=== PATIENT | female | born 1945 | race Caucasian/White ===

== ENCOUNTER → 2018-03-06 12:53 | Outpatient (CLI) | payer MEDICARE, OTHER, SELFPAY ==
[2018-03-06 14:35] LABS: Absolute Lymphocyte Count 1.92 X10^3/ul (0.83-4.51); Absolute Neutrophil Count 2.3 X10^3/uL (2.0-7.7); Basophil# 0.01 X10^3/uL; Basophil% 0.2 % (0-1); Eosinophil# 0.21 X10^3/uL; Eosinophils% 4.4 % (0-5); Hematocrit 44.9 % (37-47); Hemoglobin 14.5 g/dl (12.0-15.0); Lymphocyte # 1.92 X10^3/ul (4.0); Lymphocyte % 40.1 % (19-41); Mean Corp Hgb Conc 32.3 g/gl (32-36); Mean Corpuscular Hgb 30.9 pg (27.0-32.0); Mean Corpuscular Volume 95.5 fL (81-99); Mean Platelet Vol. 11.1 fl (6.2-12.0); Monocyte# 0.37 X10^3/uL; Monocyte% 7.7 % (0-10); Neutrophil # 2.27 X10^3/uL (2.7-7.7); Neutrophil % 47.4 % (47-70); POSITIVE COUNT NO; POSITIVE DIFFERENTIAL NO; POSITIVE MORPHOLOGY NO; Platelet Count 199 K/mm3 (150-450); RBC Distribution Width CV 12.5 % (11.6-14.6); White Blood Count 4.8 K/mm3 (4.4-11.0)
[2018-03-06 15:21] LABS: Color, Urine Yellow (Yellow); Glucose, Dipstick Normal (Normal); Ketone-Dipstick Negative (Negative); Leukocyte Esterase-Dipstick Negative /ul (Negative); Nitrite-Dipstick Negative (Negative); Occult Blood-Urine Negative /ul (Negative); Protein-Dipstick 15 mg/dl (Negative); Specific Gravity, Urine 1.025 (1.002-1.030); Urine Bilirubin Dipstick Negative (Negative); Urine Clarity Sl. Cloudy (Clear); Urine Urobilinogen Normal (Normal)
[2018-03-06 15:27] LABS: Protein, Urine (Random) 44.6 mg/dL (<11.9); Protein:Creat Ratio 208 mg/g CRE (0-200)
[2018-03-06 15:31] LABS: ALB/GLOB Ratio 1.1 RATIO (0.9-2.4); AST(SGOT) 17 U/L (15-37); Alanine Aminotransfer ALT/SGPT 26 U/L (13-56); Albumin, Serum 3.9 g/dL (3.2-5.0); Alkaline Phosphatase 112 U/L (45-117); Anion Gap 7 (5-15); BUN 26 mg/dL (7-18); BUN/Creat Ratio 29.7 RATIO (10-20); Chloride 108 mmol/L (98-107); Creatinine, Serum 0.88 mg/dL (0.55-1.02); EST Glomerular Filtration Rate 68 mL/min (>60); Est Glom Filt Rate - Afr Amer 82 mL/min (>60); Globulin 3.7 g/dL (2.2-4.2); Glucose 81 mg/dL (74-106); Protein, Total 7.6 g/dL (6.4-8.2); Sodium Level 142 mmol/L (136-145)
== END ==
PROVIDERS: Family Provider Family Medicine; PCP Family Medicine; Visit Provider Internal Medicine Rheumatology
DX: M32.9 Systemic lupus erythematosus, unspecified (principal); M17.0 Bilateral primary osteoarthritis of knee; F32.89 Other specified depressive episodes; I34.1 Nonrheumatic mitral (valve) prolapse; G47.33 Obstructive sleep apnea (adult) (pediatric)
CPT/HCPCS: 36415; 80053; 81002; 82570; 84156; 85025

== ENCOUNTER → 2018-08-31 09:09 | Outpatient (CLI) | payer MEDICARE, OTHER, SELFPAY ==
--- NOTE | 2018-08-31 11:47 | RAD_ITS ---
STUDY: X-RAY - PELVIS REASON FOR EXAM: Female, 72 years old. Systemic lupus erythematosus. TECHNIQUE: One view of the pelvis was obtained. COMPARISON: None. FINDINGS: There is a non-specific bowel gas pattern. Normal visualized soft tissue structures. There are multiple calcified phleboliths. Normal bilateral iliac wings, sacroiliac joints and visualized sacrum. Normal visualized bilateral superior and inferior pubic rami. Normal pubic symphysis. Normal ischial tuberosities. There are osteoarthritic changes of the right femoral head with marginal osteophyte formation. Normal right acetabulum. There is severe articular joint space narrowing of the right hip. There are osteoarthritic changes of the left femoral head with marginal osteophyte formation. Normal left acetabulum. There is severe articular joint space narrowing of the left hip. RAD/Pelvis 1 or 2 Views IMPRESSION: Marked degenerative changes of the bilateral hips. Electronically Signed: Kalyan Worrell DO at 20:36 EDT Tel [phone], Service support ,
[2018-08-31 12:08] LABS: Color, Urine Yellow (Yellow); Glucose, Dipstick Normal (Normal); Ketone-Dipstick Negative (Negative); Leukocyte Esterase-Dipstick Negative /ul (Negative); Nitrite-Dipstick Negative (Negative); Occult Blood-Urine 10 /ul (Negative); Protein-Dipstick Negative (Negative); Specific Gravity, Urine 1.025 (1.002-1.030); Urine Bilirubin Dipstick Negative (Negative); Urine Clarity Clear (Clear); Urine Urobilinogen Normal (Normal)
[2018-08-31 12:15] LABS: Absolute Lymphocyte Count 2.32 X10^3/ul (0.83-4.51); Absolute Neutrophil Count 4.2 X10^3/uL (2.0-7.7); Basophil# 0.02 X10^3/uL; Basophil% 0.3 % (0-1); Eosinophil# 0.26 X10^3/uL; Eosinophils% 3.5 % (0-5); Hematocrit 46.8 % (37-47); Hemoglobin 14.7 g/dl (12.0-15.0); Lymphocyte # 2.32 X10^3/ul (4.0); Lymphocyte % 31.3 % (19-41); Mean Corp Hgb Conc 31.4 g/gl (32-36); Mean Corpuscular Hgb 30.6 pg (27.0-32.0); Mean Corpuscular Volume 97.3 fL (81-99); Mean Platelet Vol. 10.7 fl (6.2-12.0); Monocyte# 0.58 X10^3/uL; Monocyte% 7.8 % (0-10); Neutrophil # 4.24 X10^3/uL (2.7-7.7); Neutrophil % 57.1 % (47-70); Platelet Count 210 K/mm3 (150-450); RBC Distribution Width CV 12.8 % (11.6-14.6); RBC Distribution Width SD 45.5 fl (35.1-43.9); Red Blood Count 4.81 M/mm3 (4.2-5.4); White Blood Count 7.4 K/mm3 (4.4-11.0)
[2018-08-31 12:24] LABS: POSITIVE COUNT NO; POSITIVE DIFFERENTIAL NO; POSITIVE MORPHOLOGY NO
[2018-08-31 12:30] LABS: ALB/GLOB Ratio 1.1 RATIO (0.9-2.4); AST(SGOT) 18 U/L (15-37); Alanine Aminotransfer ALT/SGPT 27 U/L (13-56); Albumin, Serum 4.2 g/dL (3.2-5.0); Alkaline Phosphatase 129 U/L (45-117); Anion Gap 7 (5-15); BUN 28 mg/dL (7-18); Calcium,Total 10.4 mg/dL (8.5-10.1); Chloride 105 mmol/L (98-107); EST Glomerular Filtration Rate 58 mL/min (>60); Est Glom Filt Rate - Afr Amer 70 mL/min (>60); Globulin 3.7 g/dL (2.2-4.2); Glucose 73 mg/dL (74-106); Potassium 4.2 mmol/L (3.5-5.1); Protein, Total 7.9 g/dL (6.4-8.2); Sodium Level 138 mmol/L (136-145)
[2018-08-31 12:39] LABS: Protein, Urine (Random) 23.8 mg/dL (<11.9); Protein:Creat Ratio 194 mg/g CRE (0-200)
== END ==
PROVIDERS: Family Provider Family Medicine; PCP Family Medicine; Referring Provider Internal Medicine Rheumatology; Visit Provider Internal Medicine Rheumatology
DX: M32.9 Systemic lupus erythematosus, unspecified (principal); M17.0 Bilateral primary osteoarthritis of knee; F32.89 Other specified depressive episodes; I34.1 Nonrheumatic mitral (valve) prolapse; G47.33 Obstructive sleep apnea (adult) (pediatric)
CPT/HCPCS: 36415; 72170; 80053; 81002; 82570; 84156; 85025

== ENCOUNTER → 2019-02-26 12:43 | Outpatient (CLI) | payer MEDICARE, OTHER, SELFPAY ==
[2017-07-21 14:11] VITALS: BMI 33.9
[2019-02-26 14:26] LABS: Absolute Lymphocyte Count 2.28 X10^3/ul (0.83-4.51); Absolute Neutrophil Count 3.2 X10^3/uL (2.0-7.7); Basophil# 0.02 X10^3/uL; Basophil% 0.3 % (0-1); Eosinophil# 0.16 X10^3/uL; Eosinophils% 2.6 % (0-5); Hematocrit 46.1 % (37-47); Hemoglobin 14.3 g/dl (12.0-15.0); Lymphocyte # 2.28 X10^3/ul (4.0); Lymphocyte % 37.3 % (19-41); Mean Corpuscular Volume 99.8 fL (81-99); Mean Platelet Vol. 10.5 fl (6.2-12.0); Monocyte% 8.2 % (0-10); Neutrophil # 3.15 X10^3/uL (2.7-7.7); Neutrophil % 51.4 % (47-70); POSITIVE COUNT NO; POSITIVE DIFFERENTIAL NO; POSITIVE MORPHOLOGY NO; Platelet Count 222 K/mm3 (150-450); RBC Distribution Width CV 13.3 % (11.6-14.6); RBC Distribution Width SD 48.3 fl (35.1-43.9); Red Blood Count 4.62 M/mm3 (4.2-5.4); White Blood Count 6.1 K/mm3 (4.4-11.0)
[2019-02-26 14:37] LABS: BUN 33 mg/dL (7-18); BUN/Creat Ratio 31.4 RATIO (10-20); Creatinine, Serum 1.05 mg/dL (0.55-1.02); EST Glomerular Filtration Rate 55 mL/min (>60); Est Glom Filt Rate - Afr Amer 66 mL/min (>60); Glucose 90 mg/dL (74-106); Protein, Total 7.4 g/dL (6.4-8.2)
[2019-02-26 14:38] LABS: ALB/GLOB Ratio 1.2 RATIO (0.9-2.4); AST(SGOT) 17 U/L (15-37); Alanine Aminotransfer ALT/SGPT 25 U/L (13-56); Alkaline Phosphatase 98 U/L (45-117); Anion Gap 5 (5-15); Calcium,Total 10.3 mg/dL (8.5-10.1); Chloride 109 mmol/L (98-107); Globulin 3.4 g/dL (2.2-4.2); Potassium 4.8 mmol/L (3.5-5.1); Sodium Level 142 mmol/L (136-145)
== END ==
PROVIDERS: Referring Provider Internal Medicine Rheumatology; Visit Provider Internal Medicine Rheumatology
DX: M32.9 Systemic lupus erythematosus, unspecified (principal); M25.551 Pain in right hip; M16.0 Bilateral primary osteoarthritis of hip; M17.0 Bilateral primary osteoarthritis of knee; F32.89 Other specified depressive episodes; I34.1 Nonrheumatic mitral (valve) prolapse; G47.33 Obstructive sleep apnea (adult) (pediatric)
CPT/HCPCS: 36415; 80053; 85025

== ENCOUNTER 2019-05-17 08:30 | Outpatient (RCR) | payer MEDICARE, OTHER, SELFPAY ==
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
--- NOTE | 2019-05-17 09:10 | HP.PTDCSUM_ITS ---
HP - PT D/C Summary It has been my pleasure to treat KRISTI CURRY under orders from Carlos Doan MD, for the diagnosis of RIGHT THR for a total of 9 visit(s). Discharge Date: Please see the following information for a summary of their discharge status. - Subjective Subjective: PATIENT REPORTS SHE IS DOING GOOD. STATES SHE IS PUTTING HER CANE ASIDE AND NOT USING IT NEAR MUCH. SHE USES IT AT THE [facility]. SAW SURGEON LAST FRIDAY. STATES THE SURGEON RELEASED HER TO SLEEP IN BED AND TOLD HER THE X-RAYS LOOK GOOD. STATES HE SHOWED HER HOW HER HIPS ARE LEVELING OUT. STATES SHE WANTS TO BE DISCHARGED FROM THERAPY. HAS EVEN GOT BACK TO WORK SOME. 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 PATIENT DENIES LE NUMBNESS AND TINGLING. STATES SHE DISCUSSED SHOE LIFT AGAIN WITH SURGEON AND SHE IS STILL GOING TO CONSIDER GETTING ONE. EXPRESSING FRUSTRATION W ITH TRYING TO CARE FOR ILL . - Pain RIGHT HIP Pain Intensity (Out of 10): 2 - Overall Improvement % Improvement: 85 - Objective Objective/Function: ALL GOALS MET. PATIENT IS WALKING A LOT BETTER, BOTH LEGS ARE STRONGER AND SHE EVEN HAS MORE ROM IN EACH KNEE. SHE CONTINUES TO LIMP ON THE RIGHT LE BUT MORE DUE TO LEG LENGTH DISCREPENCY THAN PAIN OR WEAKNESS. GAIT DEVIATIONS GREATLY REDUCE WITH USE OF CANE. NED LE STRENGTH IS 5/5 WITHIN AVAILABLE ROM EXCEPT HIPS 4/5. THE RIGHT HIP ACTUALLY FEELS A LITTLE STRONGER THAN THE LEFT NOW. RIGHT KNEE ROM = -5 DEG EXT TO 110 DEG FLEX. LEFT KNEE -5 DEG EXT TO 100 DEG FLEX. - Goals Goal 1:: DECREASE C/O RIGHT LE PAIN Goal Progress: Goal Met Goal 2:: INDEP AND SAFE GAIT ON ALL SURFACES WITH LEAST ASSISTIVE DEVICE Goal Progress: Goal Met Goal 3:: IMPROVE FUNCTIONAL ROM OF RIGHT LE Goal Progress: Goal Met Goal 4:: IMPROVE FUNCTIONAL STRENGTH OF RIGHT LE Goal Progress: Goal Met Goal 5:: INDEP HEP FOR CONTINUED IMPROVEMENT ONCE FORMAL PHYSICAL THERAPY CONCLUDES. Goal Progress: Goal Met - Plan Plan: D/C TO INDEP HEP. PATIENT IS DEFINATELY AGREEABLE. - D/C Information If there are questions or concerns regarding this patient's physical therapy, please feel free to call me at [phone]. Thank you for the referral of this patient. Sincerely, Lorena Benz, PT, Cert MDT
== END 2019-05-17 19:00 | disposition home or self-care (01) ==
LOC: PT 08:30
PROVIDERS: Referring Provider Orthopaedic Surgery; Visit Provider Orthopaedic Surgery
DX: Z96.641 Presence of right artificial hip joint (principal)
CPT/HCPCS: 97110; 97162; 97530

== ENCOUNTER → 2019-08-30 | Outpatient (CLI) | payer MEDICARE, OTHER, SELFPAY ==
[2017-07-21 14:11] VITALS: BMI 33.9
[2019-08-30 13:57] LABS: Absolute Lymphocyte Count 1.98 X10^3/uL (0.83-4.51); Absolute Neutrophil Count 3.9 X10^3/uL (2.0-7.7); Basophil# 0.06 X10^3/uL; Basophil% 0.9 % (0-1); Eosinophil# 0.15 X10^3/uL; Eosinophils% 2.3 % (0-5); Hematocrit 47.6 % (37-47); Lymphocyte # 1.98 X10^3/ul (4.0); Lymphocyte % 30.3 % (19-41); Mean Corp Hgb Conc 31.5 g/dL (32-36); Mean Corpuscular Hgb 29.8 pg (27.0-32.0); Mean Corpuscular Volume 94.6 fL (81-99); Mean Platelet Vol. 10.2 fl (6.2-12.0); Monocyte# 0.46 X10^3/uL; NRBC Flagged by Analyzer 0 % (0-5); Neutrophil # 3.86 X10^3/uL (2.7-7.7); Neutrophil % 59.2 % (47-70); Platelet Count 228 K/mm3 (150-450); RBC Distribution Width SD 44.9 fl (35.1-43.9); Red Blood Count 5.03 M/mm3 (4.2-5.4); White Blood Count 6.5 K/mm3 (4.4-11.0)
[2019-08-30 14:15] LABS: ALB/GLOB Ratio 1.1 RATIO (0.9-2.4); AST(SGOT) 15 U/L (15-37); Alanine Aminotransfer ALT/SGPT 21 U/L (13-56); Albumin, Serum 4.1 g/dL (3.2-5.0); Alkaline Phosphatase 127 U/L (45-117); Anion Gap 5 (5-15); BUN 23 mg/dL (7-18); BUN/Creat Ratio 19.7 RATIO (10-20); Calcium,Total 10.6 mg/dL (8.5-10.1); Chloride 104 mmol/L (98-107); Creatinine, Serum 1.17 mg/dL (0.55-1.02); EST Glomerular Filtration Rate 48 mL/min (>60); Est Glom Filt Rate - Afr Amer 59 mL/min (>60); Globulin 3.9 g/dL (2.2-4.2); Glucose 95 mg/dL (74-106); Sodium Level 138 mmol/L (136-145)
== END | disposition home or self-care (01) ==
LOC: MTLAB 12:05
PROVIDERS: Referring Provider Internal Medicine Rheumatology; Visit Provider Internal Medicine Rheumatology
DX: M32.9 Systemic lupus erythematosus, unspecified (principal); M16.0 Bilateral primary osteoarthritis of hip; M17.0 Bilateral primary osteoarthritis of knee; F32.89 Other specified depressive episodes; I34.1 Nonrheumatic mitral (valve) prolapse; G47.33 Obstructive sleep apnea (adult) (pediatric)
CPT/HCPCS: 36415; 80053; 85025

== ENCOUNTER → 2019-08-31 | Outpatient (CLI) | payer MEDICARE, OTHER, SELFPAY ==
[2019-08-31 14:03] LABS: PTHIN 100.5 pg/mL (18.4-80.1)
== END | disposition home or self-care (01) ==
LOC: MTLAB 11:54
PROVIDERS: Referring Provider Internal Medicine Rheumatology; Visit Provider Internal Medicine Rheumatology
DX: M32.9 Systemic lupus erythematosus, unspecified (principal); M16.0 Bilateral primary osteoarthritis of hip; M17.0 Bilateral primary osteoarthritis of knee
CPT/HCPCS: 36415; 83970

== ENCOUNTER → 2019-11-03 11:32 | Outpatient (CLI) | payer MEDICARE, OTHER, SELFPAY ==
[2017-07-21 14:11] VITALS: BMI 33.9
[2019-11-03 14:06] LABS: Absolute Neutrophil Count 2.4 X10^3/uL (2.0-7.7); Basophil# 0.04 X10^3/uL; Basophil% 0.8 % (0-1); Color, Urine Yellow (Yellow); Eosinophil# 0.21 X10^3/uL; Eosinophils% 4.1 % (0-5); Glucose, Dipstick Normal (Normal); Hematocrit 42.3 % (37-47); Hemoglobin 13.4 g/dL (12.0-15.0); Ketone-Dipstick 5 mg/dl (Negative); Leukocyte Esterase-Dipstick 25 /ul (Negative); Lymphocyte % 40.5 % (19-41); Mean Corp Hgb Conc 31.7 g/dL (32-36); Mean Corpuscular Hgb 30.4 pg (27.0-32.0); Mean Corpuscular Volume 95.9 fL (81-99); Mean Platelet Vol. 10.3 fl (6.2-12.0); Monocyte% 7.7 % (0-10); NRBC Flagged by Analyzer 0 % (0-5); Neutrophil # 2.42 X10^3/uL (2.7-7.7); Neutrophil % 46.7 % (47-70); Nitrite-Dipstick Negative (Negative); Occult Blood-Urine Negative /ul (Negative); Platelet Count 203 K/mm3 (150-450); Protein-Dipstick 15 mg/dl (Negative); RBC Distribution Width SD 45.9 fl (35.1-43.9); Red Blood Count 4.41 M/mm3 (4.2-5.4); Urine Clarity Clear (Clear); Urine Urobilinogen Normal (Normal); White Blood Count 5.2 K/mm3 (4.4-11.0)
[2019-11-03 14:20] LABS: Urine Bilirubin Dipstick 1 mg/dL (Negative)
[2019-11-03 14:22] LABS: Protein, Urine (Random) 43.4 mg/dL (<11.9); Protein:Creat Ratio 165 mg/g CRE (0-200)
[2019-11-03 14:30] LABS: AST(SGOT) 17 U/L (15-37); Alanine Aminotransfer ALT/SGPT 21 U/L (13-56); Albumin, Serum 3.7 g/dL (3.2-5.0); Alkaline Phosphatase 104 U/L (45-117); Anion Gap 5 (5-15); BUN 33 mg/dL (7-18); Calcium,Total 9.6 mg/dL (8.5-10.1); Chloride 109 mmol/L (98-107); Creatinine, Serum 1.27 mg/dL (0.55-1.02); EST Glomerular Filtration Rate 44 mL/min (>60); Est Glom Filt Rate - Afr Amer 53 mL/min (>60); Globulin 3.6 g/dL (2.2-4.2); Glucose 72 mg/dL (74-106); Potassium 3.9 mmol/L (3.5-5.1); Protein, Total 7.3 g/dL (6.4-8.2); Sodium Level 142 mmol/L (136-145)
== END ==
PROVIDERS: Referring Provider Internal Medicine Rheumatology; Visit Provider Internal Medicine Rheumatology
DX: M32.9 Systemic lupus erythematosus, unspecified (principal); M16.0 Bilateral primary osteoarthritis of hip; M17.0 Bilateral primary osteoarthritis of knee
CPT/HCPCS: 36415; 80053; 81002; 82570; 84156; 85025

== ENCOUNTER → 2020-05-30 11:03 | Outpatient (CLI) | payer MEDICARE, OTHER, SELFPAY ==
[2017-07-21 14:11] VITALS: BMI 33.9
[2020-05-30 12:05] LABS: Absolute Neutrophil Count 3.4 X10^3/uL (2.0-7.7); Basophil# 0.05 X10^3/uL; Basophil% 0.7 % (0-1); Eosinophils% 4.3 % (0-5); Hematocrit 47.2 % (37-47); Hemoglobin 14.9 g/dL (12.0-15.0); Lymphocyte % 37.4 % (19-41); Mean Corp Hgb Conc 31.6 g/dL (32-36); Mean Corpuscular Hgb 30.8 pg (27.0-32.0); Mean Corpuscular Volume 97.7 fL (81-99); Mean Platelet Vol. 10.8 fl (6.2-12.0); Monocyte# 0.59 X10^3/uL; Monocyte% 8.5 % (0-10); NRBC Flagged by Analyzer 0 % (0-5); Neutrophil # 3.41 X10^3/uL (2.7-7.7); Platelet Count 215 K/mm3 (150-450); RBC Distribution Width CV 13.1 % (11.6-14.6); RBC Distribution Width SD 46.8 fl (35.1-43.9); Red Blood Count 4.83 M/mm3 (4.2-5.4)
[2020-05-30 12:25] LABS: PTHIN 106.6 pg/mL (18.4-80.1)
[2020-05-30 12:43] LABS: ALB/GLOB Ratio 1.1 RATIO (0.9-2.4); AST(SGOT) 17 U/L (15-37); Alanine Aminotransfer ALT/SGPT 21 U/L (13-56); Alkaline Phosphatase 115 U/L (45-117); Anion Gap 6 (5-15); BUN 30 mg/dL (7-18); BUN/Creat Ratio 26.8 RATIO (10-20); Calcium,Total 10.3 mg/dL (8.5-10.1); Chloride 110 mmol/L (98-107); Creatinine, Serum 1.12 mg/dL (0.55-1.02); EST Glomerular Filtration Rate 51 mL/min (>60); Est Glom Filt Rate - Afr Amer 61 mL/min (>60); Globulin 3.7 g/dL (2.2-4.2); Glucose 87 mg/dL (74-106); Potassium 4.1 mmol/L (3.5-5.1); Protein, Total 7.7 g/dL (6.4-8.2); Sodium Level 140 mmol/L (136-145)
== END ==
PROVIDERS: Referring Provider Internal Medicine Rheumatology; Visit Provider Internal Medicine Rheumatology
DX: M32.9 Systemic lupus erythematosus, unspecified (principal); M16.0 Bilateral primary osteoarthritis of hip; M17.0 Bilateral primary osteoarthritis of knee; I34.1 Nonrheumatic mitral (valve) prolapse; G47.33 Obstructive sleep apnea (adult) (pediatric)
CPT/HCPCS: 36415; 80053; 83970; 85025

== ENCOUNTER 2020-06-01 10:00 | Outpatient (RCR) | payer MEDICARE, OTHER, SELFPAY ==
--- NOTE | 2020-05-24 12:45 | HP.PTEVAL_ITS ---
Patient's Visit Information KRISTI CURRY is a 74 year old F referred to Physical Therapy by DAPHNE MALONEY with a diagnosis of L hip OA. Date of Evaluation: 05/24/20 Physical Therapist: Erik Orantes, PT, ATC - Visit Plan Frequency: 1x/Week Duration: 2 Weeks Plan: Issue and instruct pt on HEP consisting of L LE stretching, strengthening, balance/proprio, and core stab ex's. - Subjective Pt reports L hip has been sore for a couple years. Pt reports she had her R hip replaced 1 year ago, and was told back then that she would need her L one replaced soon. Pt reports she is very active, and notes she is really sore the day after she works out in the yard. Pt also notes she feels a little unsteady with gait at this time secondary to her R LE being longer in length than her L LE. Pt reports she likes to ride horses and would like to be able to do that again. Pt denies tinglin or numbness in L LE. Pt reports sleep difficulty at this time secondary to L hip pain. Pt reports she is able to negotiate stairs at this time but must go one stair at a time. 4/10 pain at rest, 9/10 at worst (working in the yard). Pt is scheduled to have L ANASTASIA 06/23/2020 - Pain L hip Pain Intensity (Out of 10): 4 Pain Intensity Range: 9 - Objective Neuro: B LE sensation is WNL to light touch. B patellar reflex= 2/3. MMT: R hip is grossly 5/5 throughout while L hip is 4/5 and painful with testing. ROM: B hip's are WFL at this time. Special tests: Pos quadrant test - Goals Goal 1:: I with HEP 2-3 visits Goal Time Frame: 2 Weeks - Rehabilitation Potential Physical Therapy Diagnosis: Pt has L hip pain and weakness secondary to L hip OA Rehabilitation Potential: Good - Anticipated Interventions Patient/Client Instruction: Educate patient on: Condition, Plan of Care For the Purpose of:: To improve self management Therapeutic Exercise to Include: Strength training, Balance training, Flexibilty training, Active ROM, Dynamic Lumbar Stabilization For the Purpose of:: To decrease pain, To improve muscle performance and motor function, To improve ability of physical actions for home/community/work/leisure Cryotherapy (ice pack, ice massage): Yes For the Purpose of:: To decrease pain Thank you for the opportunity to evaluate your patient. For Medicare and Medicare HMO plans, please review the plan of care and approve it. It will need to be FAXED BACK to us at [phone] for Medicare purposes. For Medicare only, by signing this I certify the plan of care. Please let me know if there are questions or concerns regarding this plan of care. Physician Signature: ___Date:
--- NOTE | 2020-06-01 10:32 | HP.PTDCSUM ---
It has been my pleasure to treat KRISTI CURRY referred by DAPHNE MALONEY, with the diagnosis of L hip OA for a total of 2 visit(s). Discharge Date: Please see the following information for a summary of their discharge status. Subjective: My knee hurts the most today. L hip Pain Intensity (Out of 10): 5 % Improvement: 0 Objective/Function: Pt is now I with HEP Goal 1:: I with HEP 2-3 visits Goal Progress: Goal Met Plan: Issued and instructed pt on HEP consisting of L LE stretching, strengthening, balance/proprio, and core stab ex's. Discharge If there are questions or concerns regarding this patient's physical therapy, please feel free to call me at [phone]. Thank you for the referral of this patient. Sincerely, Erik Orantes, PT, ATC
== END 2020-06-01 13:35 | disposition home or self-care (01) ==
LOC: PT 10:00
DX: M16.12 Unilateral primary osteoarthritis, left hip (principal)
CPT/HCPCS: 97110; 97161

== ENCOUNTER 2020-08-08 10:00 | Outpatient (RCR) | payer MEDICARE, OTHER, SELFPAY ==
--- NOTE | 2020-07-26 09:47 | HP.PTEVAL ---
Patient's Visit Information KRISTI CURRY is a 74 year old F referred to Physical Therapy by Dr. Carlos Doan MD with a diagnosis of L ANASTASIA 06/23/20. Date of Evaluation: 07/26/20 Physical Therapist: Erik Orantes, PT, ATC - Visit Plan Frequency: 2x /Week Duration: 5 weeks Plan: L LE strengthening, balance and proprio, core strengthening, nustep, and HEP - Subjective DOS: 06/23/20. Pt notes she had a L ANASTASIA performed with a posterior approach. Pt notes she is doing well at this time. Pt reports she is still using her WW, but has tried her cane on occasion. Pt reports she had Home health for 3 weeks after her surgery. Pt notes the pain she now has is significantly better than prior to surgery. Pt reports she is able to negotiate stairs one at a time. Pt notes she also does have L knee pain that limits her. No tingling or numbness in L LE. Pt reports sleep difficulty at this time without the use of pain meds. 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 0/10 pain at rest, 7/10 pain with prolonged activity. - Pain L ANASTASIA 06/23/20 Pain Intensity (Out of 10): 0 Pain Intensity Range: 7 - Objective Neuro: B LE sensation is WNL to light touch. MMT: R LE is grossly 5/5 throughout. L LE is grossly 4/5 and painful. ROM: L hip is minimally limited in all planes. R LE is WNL. Gait: Pt is able to ambulate 680 feet with WW and CGA - Goals Goal 1:: Decrease L hip pain x 50% to aid with sleep Goal Time Frame: 4-6 Weeks Goal 2:: Increase L LE strength x 1 grade to aid with stair negotiation Goal Time Frame: 4-6 Weeks Goal 3:: Pt will be able to ambulate greater than 1000 feet with LRD to aid with community ambulation Goal Time Frame: 4-6 Weeks Goal 4:: I with HEP Goal Time Frame: 4-6 Weeks - Rehabilitation Potential Physical Therapy Diagnosis: Pt has L hip pain, weakness, and limited ROM secondary to L ANASTASIA Rehabilitation Potential: Good - Anticipated Interventions Patient/Client Instruction: Educate patient on: Condition, Plan of Care For the Purpose of:: To improve self management Therapeutic Exercise to Include: Strength training, Endurance training, Balance training, Gait and locomotor training, Active ROM, Dynamic Lumbar Stabilization For the Purpose of:: To decrease pain, To increase ROM, To improve muscle performance and motor function Cryotherapy (ice pack, ice massage): Yes For the Purpose of:: To decrease pain Thank you for the opportunity to evaluate your patient. For Medicare and Medicare HMO plans, please review the plan of care and approve it. It will need to be FAXED BACK to us at [phone] for Medicare purposes. For Medicare only, by signing this I certify the plan of care. Please let me know if there are questions or concerns regarding this plan of care. Physician Signature: Date:
--- NOTE | 2020-08-21 15:02 | HP.PT.NRP ---
KRISTI CURRY was seen in my office for initial evaluation on 07/26/20. The following Plan of Care was established for this patient: Initial Frequency: 2x /Week Initial Duration: 5 weeks Patient/Client Instruction: Educate patient on: Condition, Plan of Care For the Purpose of:: To improve self management Therapeutic Exercise to Include: Strength training, Endurance training, Balance training, Gait and locomotor training, Active ROM, Dynamic Lumbar Stabilization For the Purpose of:: To decrease pain, To increase ROM, To improve muscle performance and motor function Cryotherapy (ice pack, ice massage): Yes For the Purpose of:: To decrease pain This patient was last seen in our office . Pertinent comments regarding their Physical therapy will appear below: Pt reports her knee pain is too sore to continue with her PT at this time. Pt is discontinued. At this point I will be discontinuing this patient from physical therapy. I would be happy to see this patient again in the future if found appropriate by the physician. Thank you! Erik Orantes, PT, ATC
== END 2020-08-08 19:00 | disposition home or self-care (01) ==
LOC: PT 10:00
PROVIDERS: Referring Provider Orthopaedic Surgery; Visit Provider Orthopaedic Surgery
DX: Z47.1 Aftercare following joint replacement surgery (principal)
CPT/HCPCS: 97110; 97161

== ENCOUNTER → 2020-09-12 11:35 | Outpatient (CLI) | payer MEDICARE, OTHER, SELFPAY ==
[2020-09-12 11:04] VITALS: BMI 40.1
[2020-09-12 13:34] LABS: Calcium,Total 10.7 mg/dL (8.5-10.1)
[2020-09-12 13:41] LABS: PTHIN 105.9 pg/mL (18.4-80.1)
== END ==
PROVIDERS: Referring Provider Internal Medicine Endocrinology, Diabetes & Metabolism; Visit Provider Internal Medicine Endocrinology, Diabetes & Metabolism
DX: E21.3 Hyperparathyroidism, unspecified (principal); E55.9 Vitamin D deficiency, unspecified
CPT/HCPCS: 36415; 82306; 82310; 83970

== ENCOUNTER → 2020-09-19 12:38 | Outpatient (CLI) | payer MEDICARE, OTHER, SELFPAY ==
[2020-09-12 11:04] VITALS: BMI 40.1
[2020-09-19 15:08] LABS: Absolute Lymphocyte Count 1.71 X10^3/uL (0.83-4.51); Absolute Neutrophil Count 4.2 X10^3/uL (2.0-7.7); Basophil# 0.03 X10^3/uL; Basophil% 0.5 % (0-1); Eosinophil# 0.18 X10^3/uL; Eosinophils% 2.7 % (0-5); Hematocrit 45.8 % (37-47); Hemoglobin 14.2 g/dL (12.0-15.0); Lymphocyte # 1.71 X10^3/ul (4.0); Lymphocyte % 26.1 % (19-41); Mean Corpuscular Hgb 29.7 pg (27.0-32.0); Mean Corpuscular Volume 95.8 fL (81-99); Mean Platelet Vol. 10.6 fl (6.2-12.0); Monocyte# 0.47 X10^3/uL; Monocyte% 7.2 % (0-10); NRBC Flagged by Analyzer 0 % (0-5); Neutrophil # 4.16 X10^3/uL (2.7-7.7); Neutrophil % 63.3 % (47-70); Platelet Count 227 K/mm3 (150-450); RBC Distribution Width CV 12.8 % (11.6-14.6); RBC Distribution Width SD 45.4 fl (35.1-43.9); Red Blood Count 4.78 M/mm3 (4.2-5.4); White Blood Count 6.6 K/mm3 (4.4-11.0)
[2020-09-19 15:24] LABS: ALB/GLOB Ratio 1.1 RATIO (0.9-2.4); AST(SGOT) 16 U/L (15-37); Alanine Aminotransfer ALT/SGPT 21 U/L (13-56); Alkaline Phosphatase 130 U/L (45-117); Anion Gap 6 (5-15); BUN 28 mg/dL (7-18); Chloride 108 mmol/L (98-107); EST Glomerular Filtration Rate 58 mL/min (>60); Est Glom Filt Rate - Afr Amer 70 mL/min (>60); Globulin 3.7 g/dL (2.2-4.2); Glucose 77 mg/dL (74-106); Protein, Total 7.7 g/dL (6.4-8.2); Sodium Level 140 mmol/L (136-145)
== END ==
PROVIDERS: Referring Provider Internal Medicine Rheumatology; Visit Provider Internal Medicine Rheumatology
DX: M32.9 Systemic lupus erythematosus, unspecified (principal); M16.0 Bilateral primary osteoarthritis of hip; M17.0 Bilateral primary osteoarthritis of knee; I34.1 Nonrheumatic mitral (valve) prolapse; G47.33 Obstructive sleep apnea (adult) (pediatric)
CPT/HCPCS: 36415; 80053; 85025

== ENCOUNTER → 2021-01-02 12:55 | Outpatient (CLI) | payer MEDICARE, OTHER, SELFPAY ==
[2020-09-12 11:04] VITALS: BMI 40.1
[2021-01-02 15:36] LABS: Vitamin D,25 Hydroxy 31.7 ng/mL
[2021-01-02 15:39] LABS: PTHIN 85.6 pg/mL (18.4-80.1)
[2021-01-02 15:46] LABS: Calcium,Total 10.9 mg/dL (8.5-10.1)
== END ==
PROVIDERS: Referring Provider Internal Medicine Endocrinology, Diabetes & Metabolism; Visit Provider Internal Medicine Endocrinology, Diabetes & Metabolism
DX: E21.0 Primary hyperparathyroidism (principal); E55.9 Vitamin D deficiency, unspecified
CPT/HCPCS: 36415; 82306; 82310; 83970

== ENCOUNTER → 2021-01-08 08:09 | Outpatient (CLI) | payer MEDICARE, OTHER, SELFPAY ==
[2020-09-12 11:04] VITALS: BMI 40.1
[2021-01-08 12:26] LABS: Absolute Lymphocyte Count 2.28 X10^3/uL (0.83-4.51); Absolute Neutrophil Count 3.9 X10^3/uL (2.0-7.7); Basophil# 0.05 X10^3/uL; Basophil% 0.7 % (0-1); Eosinophil# 0.27 X10^3/uL; Eosinophils% 3.8 % (0-5); Hemoglobin 14.4 g/dL (12.0-15.0); Lymphocyte # 2.28 X10^3/ul (4.0); Lymphocyte % 32.5 % (19-41); Mean Corp Hgb Conc 30.6 g/dL (32-36); Mean Corpuscular Hgb 29.8 pg (27.0-32.0); Mean Corpuscular Volume 97.1 fL (81-99); Mean Platelet Vol. 10.9 fl (6.2-12.0); Monocyte# 0.47 X10^3/uL; Monocyte% 6.7 % (0-10); NRBC Flagged by Analyzer 0 % (0-5); Neutrophil # 3.93 X10^3/uL (2.7-7.7); Platelet Count 240 K/mm3 (150-450); RBC Distribution Width SD 46.3 fl (35.1-43.9); Red Blood Count 4.84 M/mm3 (4.2-5.4)
[2021-01-08 12:27] LABS: Color, Urine Yellow (Yellow); Glucose, Dipstick Normal (Normal); Ketone-Dipstick Negative (Negative); Leukocyte Esterase-Dipstick 100 /ul (Negative); Nitrite-Dipstick Negative (Negative); Occult Blood-Urine Negative /ul (Negative); Protein-Dipstick Negative (Negative); Specific Gravity, Urine 1.015 (1.002-1.030); Urine Bilirubin Dipstick Negative (Negative); Urine Clarity Sl. Cloudy (Clear); Urine Urobilinogen Normal (Normal)
[2021-01-08 12:47] LABS: Protein, Urine (Random) 6.2 mg/dL (<11.9); Protein:Creat Ratio 190 mg/g CRE (0-200)
[2021-01-08 12:50] LABS: ALB/GLOB Ratio 1.1 RATIO (0.9-2.4); AST(SGOT) 23 U/L (15-37); Alanine Aminotransfer ALT/SGPT 24 U/L (13-56); Albumin, Serum 4.2 g/dL (3.2-5.0); Alkaline Phosphatase 129 U/L (45-117); Anion Gap 6 (5-15); BUN 24 mg/dL (7-18); BUN/Creat Ratio 26.9 RATIO (10-20); Calcium,Total 10.4 mg/dL (8.5-10.1); Chloride 108 mmol/L (98-107); Creatinine, Serum 0.89 mg/dL (0.55-1.02); EST Glomerular Filtration Rate 66 mL/min (>60); Est Glom Filt Rate - Afr Amer 80 mL/min (>60); Globulin 3.7 g/dL (2.2-4.2); Glucose 83 mg/dL (74-106); Protein, Total 7.9 g/dL (6.4-8.2); Sodium Level 139 mmol/L (136-145)
== END ==
PROVIDERS: Visit Provider Internal Medicine Rheumatology
DX: M32.9 Systemic lupus erythematosus, unspecified (principal); M16.0 Bilateral primary osteoarthritis of hip; M17.0 Bilateral primary osteoarthritis of knee; I34.1 Nonrheumatic mitral (valve) prolapse; G47.33 Obstructive sleep apnea (adult) (pediatric)
CPT/HCPCS: 36415; 80053; 81002; 82570; 84156; 85025

== ENCOUNTER → 2021-07-06 12:12 | Outpatient (CLI) | payer MEDICARE, OTHER, SELFPAY ==
[2020-09-12 11:04] VITALS: BMI 40.1
[2021-07-06 15:37] LABS: ALB/GLOB Ratio 1.2 RATIO (0.9-2.4); AST(SGOT) 23 U/L (15-37); Absolute Neutrophil Count 3.6 X10^3/uL (2.0-7.7); Alanine Aminotransfer ALT/SGPT 28 U/L (13-56); Albumin, Serum 4.2 g/dL (3.2-5.0); Alkaline Phosphatase 105 U/L (45-117); Anion Gap 6 (5-15); BUN 28 mg/dL (7-18); BUN/Creat Ratio 22.8 RATIO (10-20); Basophil# 0.04 X10^3/uL; Basophil% 0.6 % (0-1); Chloride 111 mmol/L (98-107); Creatinine, Serum 1.23 mg/dL (0.55-1.02); EST Glomerular Filtration Rate 45 mL/min (>60); Eosinophil# 0.14 X10^3/uL; Eosinophils% 2.2 % (0-5); Est Glom Filt Rate - Afr Amer 55 mL/min (>60); Globulin 3.4 g/dL (2.2-4.2); Glucose 107 mg/dL (74-106); Hematocrit 45.4 % (37-47); Hemoglobin 14.3 g/dL (12.0-15.0); Mean Corp Hgb Conc 31.5 g/dL (32-36); Mean Corpuscular Hgb 30.4 pg (27.0-32.0); Mean Corpuscular Volume 96.6 fL (81-99); Mean Platelet Vol. 11.1 fl (6.2-12.0); Monocyte# 0.46 X10^3/uL; Monocyte% 7.4 % (0-10); NRBC Flagged by Analyzer 0 % (0-5); Neutrophil # 3.59 X10^3/uL (2.7-7.7); Neutrophil % 57.5 % (47-70); Platelet Count 209 K/mm3 (150-450); Potassium 4.3 mmol/L (3.5-5.1); Protein, Total 7.6 g/dL (6.4-8.2); RBC Distribution Width CV 12.9 % (11.6-14.6); RBC Distribution Width SD 46.1 fl (35.1-43.9); Sodium Level 142 mmol/L (136-145); White Blood Count 6.3 K/mm3 (4.4-11.0)
[2021-07-06 16:12] LABS: Calcium,Total 10.4 mg/dL (8.5-10.1)
[2021-07-06 16:35] LABS: Vitamin D,25 Hydroxy 44.3 ng/mL
[2021-07-07 08:09] LABS: PTHIN 102.9 pg/mL (18.4-80.1)
== END ==
PROVIDERS: Internal Medicine Endocrinology, Diabetes & Metabolism; Referring Provider Internal Medicine Rheumatology; Visit Provider Internal Medicine Rheumatology
DX: M32.9 Systemic lupus erythematosus, unspecified (principal); M16.0 Bilateral primary osteoarthritis of hip; M17.0 Bilateral primary osteoarthritis of knee; I34.1 Nonrheumatic mitral (valve) prolapse; G47.33 Obstructive sleep apnea (adult) (pediatric); E55.9 Vitamin D deficiency, unspecified; E21.3 Hyperparathyroidism, unspecified
CPT/HCPCS: 36415; 80053; 82306; 82310; 83970; 85025

== ENCOUNTER → 2021-08-15 11:08 | Outpatient (CLI) | payer MEDICARE, OTHER, SELFPAY ==
[2021-08-15 15:18] LABS: ALB/GLOB Ratio 0.9 RATIO (0.9-2.4); AST(SGOT) 20 U/L (15-37); Alanine Aminotransfer ALT/SGPT 27 U/L (13-56); Albumin, Serum 3.7 g/dL (3.2-5.0); Alkaline Phosphatase 112 U/L (45-117); Anion Gap 5 (5-15); BUN 35 mg/dL (7-18); BUN/Creat Ratio 26.3 RATIO (10-20); Chloride 108 mmol/L (98-107); Creatinine, Serum 1.33 mg/dL (0.55-1.02); EST Glomerular Filtration Rate 42 mL/min (>60); Est Glom Filt Rate - Afr Amer 50 mL/min (>60); Globulin 3.9 g/dL (2.2-4.2); Glucose 94 mg/dL (74-106); Potassium 4.4 mmol/L (3.5-5.1); Protein, Total 7.6 g/dL (6.4-8.2); Sodium Level 139 mmol/L (136-145)
== END ==
PROVIDERS: Referring Provider Internal Medicine Endocrinology, Diabetes & Metabolism; Visit Provider Internal Medicine Endocrinology, Diabetes & Metabolism
DX: E21.3 Hyperparathyroidism, unspecified (principal)
CPT/HCPCS: 36415; 80053

== ENCOUNTER → 2021-09-04 07:47 | Outpatient (CLI) | payer MEDICARE, OTHER, SELFPAY ==
--- NOTE | 2021-09-04 07:49 | US_ITS ---
INDICATION: hyperparathyroidism EXAMINATION: Ultrasound US Thyroid (eg thyroid, parathyroid, parotid) TECHNIQUE: Shay scale and color doppler imaging was performed of the thyroid gland. COMPARISON: CT spine obtained 07/21/2017. FINDINGS: RIGHT THYROID LOBE: The right lobe of the thyroid gland measures 4.1 x 1.5 x 1.4 cm. Homogeneous echotexture with normal vascularity. [No thyroid nodules are present. LEFT THYROID LOBE: The left lobe of the thyroid gland measures 4.0 x 1.5 x 1.2 cm. Homogeneous echotexture with normal vascularity. [No thyroid nodules are present. ISTHMUS: The isthmus measures 0.4 cm in maximal AP diameter.. No thyroid nodules are present. US/Thyroid IMPRESSION: Unremarkable thyroid ultrasound examination. Electronically Signed: Michele Lala MD at 13:10 EDT Tel , Service support ,
== END ==
PROVIDERS: PCP Family Medicine; Referring Provider Surgery; Visit Provider Surgery
DX: E21.3 Hyperparathyroidism, unspecified (principal)
CPT/HCPCS: 76536

== ENCOUNTER → 2021-09-11 07:37 | Outpatient (CLI) | payer MEDICARE, OTHER, SELFPAY ==
--- NOTE | 2021-09-11 07:40 | NM_ITS ---
CLINICAL: 75-year-old female with history of clinical hyperparathyroidism. 99m Tc SESTAMIBI DUAL PHASE PLANAR and SPECT PARATHYROID SCINTIGRAPHY COMPARISON: Thyroid ultrasound report 09/04/2021 FINDINGS: Following the intravenous administration of approximately 15.0 mCi of 99m Tc sestamibi, planar image acquisitions of the anterior neck at 15 minutes and 3 hours post radiopharmaceutical provision and SPECT reconstructions obtained at 3 hours following tracer injection reveal: 1. Immediate static blood pool acquisitions demonstrate relatively homogeneous tracer concentration by the left-right lobes of a vaguely U-shaped thyroid gland. 2. Delayed planar images depict incomplete washout of the radiotracer in the distribution of the right and left thyroid beds. Emission computed tomographic reconstructions of the anterior neck reveal confirmation of the planar projection findings. NM/Parathyroid Image w/ SPECT IMPRESSION: 1. There is no definitive scintigraphic evidence of parathyroid adenoma on the current examination. 2. Incomplete-delayed washout of the radiopharmaceutical from the entire functioning thyroid colloid may be secondary to multinodular goiter, chronic lymphocytic thyroiditis. (Hu, Radiographics 19: 601, 1999). Electronically Signed: Jean Pierre Aguilar DO at 22:00 EDT Tel , Service support ,
== END ==
PROVIDERS: PCP Family Medicine; Referring Provider Surgery; Visit Provider Surgery
DX: E21.3 Hyperparathyroidism, unspecified (principal)
CPT/HCPCS: 78071; A9500

== ENCOUNTER 2021-09-24 05:49 | Day surgery (SDC) | payer MEDICARE, OTHER, SELFPAY ==
--- NOTE | 2021-09-21 10:44 | EKG12_ITS ---
Test Reason : PRE OP Blood Pressure : / mmHG Vent. Rate : 071 BPM Atrial Rate : 071 BPM P-R Int : 184 ms QRS Dur : 098 ms QT Int : 390 ms P-R-T Axes : 034 -41 026 degrees QTc Int : 423 ms Normal sinus rhythm with sinus arrhythmia Left axis deviation Abnormal ECG Confirmed by LUCERO REYEZ, DILAN ([id number]), field map editor MARIA LUZ DESAI ([id number]) on 09/25/2021 10:48:37 AM Referred By: Johnny Busch Confirmed By:DILAN BARKER MD
[2021-09-21 12:16] LABS: Hemoglobin 14.5 g/dL (12.0-15.0); Mean Corp Hgb Conc 32.2 g/dL (32-36); Mean Corpuscular Hgb 30.9 pg (27.0-32.0); Mean Corpuscular Volume 95.9 fL (81-99); Platelet Count 206 K/mm3 (150-450); RBC Distribution Width CV 13.1 % (11.6-14.6); RBC Distribution Width SD 46.6 fl (35.1-43.9); Red Blood Count 4.69 M/mm3 (4.2-5.4); White Blood Count 5.5 K/mm3 (4.4-11.0)
[2021-09-21 12:24] LABS: International Normalized Ratio 1.1; Prothrombin Time (Protime)PT. 13.3 SECONDS (11.7-14.9)
[2021-09-21 12:25] LABS: Partial Thromboplast Time 24.4 Seconds (24.1-36.2)
[2021-09-21 12:59] LABS: Anion Gap 5 (5-15); BUN 30 mg/dL (7-18); BUN/Creat Ratio 32.3 RATIO (10-20); Chloride 108 mmol/L (98-107); Creatinine, Serum 0.93 mg/dL (0.55-1.02); EST Glomerular Filtration Rate 63 mL/min (>60); Est Glom Filt Rate - Afr Amer 76 mL/min (>60); Glucose 85 mg/dL (74-106); Potassium 4.2 mmol/L (3.5-5.1); Sodium Level 141 mmol/L (136-145)
[2021-09-24] VITALS (8 sets, daily range): BP systolic 120–155; BP diastolic 31–100; PULSE 40–81; RESP 16–20; TEMP 35.9–37; O2SAT 94–100; BMI 38.2
--- NOTE | 2021-09-24 | PARA_PTH ---
PATIENT: KRISTI CURRY LOC: [facility]#:[id number] AGE/SX: 76/F ROOM: RE09/24/[address]: Dr. Johnny Busch MD : 1945 BED: DIS: 09/24/2021 SPEC #: [id number] RECD: 09/24/21 09:03 STATUS: OSCAR MICKY #: [id number] FEI: 09/24/21 00:[address]: Johnny Busch DEPT: SURGICAL PATHOLOGY RECD BY: Nicole Hernadez ENTERED: 09/24/21 10:10 SP TYPE: PARATHY DANNA DR: Dr. Carey Souza DO Tissues: A - Parathyroid B - Parathyroid C - Parathyroid D - Parathyroid Procedures: Frozen Section (charge) Surgery Specimen Level IV HEADER OPERATION: Parathyroidectomy with PTH and nerve monitoring PRE-OP DIAGNOSIS: Hyperparathyroidism TISSUE SUBMITTED: A - Right inferior parathyroid gland, FS, B - Left inferior parathyroid tissue, FS, C - Left superior parathyroid tissue, FS, D - Left superior parathyroid gland, FS FROZEN SECTION DIAGNOSIS A. Right inferior parathyroid gland: Parathyroid tissue. A small piece of thyroid is also noted. :jeffrey 09/24/2021 B. Left inferior parathyroid gland, biopsy: Fragment of parathyroid tissue. C. Left superior parathyroid gland, biopsy: Fragment of parathyroid tissue. D. Left superior parathyroid gland, biopsy: Hyperplastic parathyroid gland. AM:jeffrey 09/24/2021 MICROSCOPIC DIAGNOSIS A. Right inferior parathyroid gland, biopsy: Parathyroid tissue. Thyroid tissue. B. Left inferior parathyroid gland, biopsy: Parathyroid tissue. C. Left superior parathyroid gland, biopsy: Parathyroid tissue. D. Left superior parathyroid gland, biopsy: Hyperplastic parathyroid tissue (0.5 gm). ANN MARIE:jeffrey 09/25/2021 MICROSCOPIC DESCRIPTION Slides are reviewed. GROSS DESCRIPTION A - Received fresh for frozen section diagnosis labeled with the patient's name is a specimen designated right inferior parathyroid gland. The specimen consists of a piece of amador-pink glandular tissue weighing 0.2 gm and measuring 1 x 1 x 0.2 cm. The entire specimen is submitted in one cassette for frozen section diagnosis. / SJ: 09/24/2021 B - Received fresh for frozen section consultation labeled with the patient's name is a specimen designated left inferior parathyroid tissue. The specimen consists of a single irregular fragment of pink-amador soft tissue measuring 0.5 x 0.2 x 0.1 cm. The specimen is submitted in its entirety in one block for frozen section consultation. / AM: 09/24/2021 C - Received fresh for frozen section consultation labeled with the patient's name is a specimen designated left superior parathyroid tissue. The specimen consists of a single irregular fragment of pink-amador soft tissue measuring 0.3 x 0.2 x 0.1 cm. The specimen is submitted in its entirety in one block for frozen section consultation. / AM: 09/24/2021 D - Received fresh for frozen section consultation labeled with the patient's name is a specimen designated left superior parathyroid gland. The specimen consists of a single irregular fragment of pink-amador soft tissue measuring 1.6 x 1 x 0.3 cm and weights 0.5 gm. The specimen is submitted in its entirety in one block for frozen section consultation. / AM: 09/24/2021 TC:5 CPT: 31567 x4, 07292 x4
[2021-09-24] MEDS: Lactated Ringers 1,000 ML 100 ML IV (06:42)
--- NOTE | 2021-09-24 07:18 | HP.PCM_ITS ---
History and Physical Date of Admission: 09/24/21 [id number]:[id number]: KRISTI CURRY [facility] #:[id number]:1945 Provider:Dr. Johnny Busch MDAge/Sex: 75/F Location:[facility] [place].AStatus:Signed Intake Intake Visit Reasons: IMAGING 09/04 [facility] F/U Chief Complaint: Hyperparathyroidism Allergies Penicillins Allergy (Intermediate, Verified 09/14/21 08:18) rash Sulfa (Sulfonamide Antibiotics) Adverse Reaction (Verified 09/14/21 08:18) Other Medications hydroxychloroquine 200 mg tablet 200 mg PO BID 09/12/20 [History Confirmed 09/14/21] mirabegron 25 mg tablet,extended release 24 hr 25 mg PO DAILY tab 07/10/21 [History Confirmed 09/14/21] tizanidine 2 mg capsule 2 mg PO QHS cap 07/10/21 [History Confirmed 09/14/21] PFSH Medical History Arthritis Atrial fibrillation Breast lump Hypercalcemia Hyperparathyroidism Lupus Osteopenia Vitamin D deficiency Surgical History Hx of bilateral hip replacements Hx of total knee replacement Family History Other Arthritis Cancer Myocardial infarction Social History Smoking Status: Never smoker alcohol intake: never substance use type: does not use HPI HPI HPI: KRISTI CURRY, is a 75 F who presents to the office today for hyperparathyroidism. They are referred from Dr. Harrison Blanchard. Patient has history of osteopenia with a T score of -1.9 on DEXA from 05/03/2014 (this was performed as part of routine woman's health screening). Patient has no history of pathologic fractures. Patient has no history of kidney stones but she does have renal disease with a diagnosis of CKD 3. Patient has no history of frequent dental caries or chipped teeth. Patient has no history of brittle fingernails. Patient has no history of GERD. Patient has no history of hypertension. Additional symptoms include: Fatigue and recent constipation. She specifically denies concentration difficulties or depressed mood. Patient has no history of prior radiation exposure. Patient has no family h istory of other endocrinopathies Patient's current labs are calcium: 10 mg/dL on 08/15/2021 range of 9.6-10.9, Vitamin D: 44.3 ng/mL on 07/06/2021, Ionized calcium: None collected mg/dL, PTH: 102.9 pg/mL on 07/06/2021 range of 85.6-106.6, Phosphorus: None collected per chart Current medications include: Calcium supplementation per patient, but actual prescription not recorded in [employer] Patient has had DEXA imaging 05/30/2014 which showed osteopenia and a T score of -1.9. Patient has not had renal imaging. Patient presents today following her initial consultation on 08/27/2021 (recapitulated in the text above). In the interim she has undergone formal thyroid related ultrasound and nuclear medicine scanning. There were no findings within the thyroid on the ultrasound imaging and no clear tracer uptake to suggest parathyroid adenoma on the nuclear medicine scan. Otherwise, Mrs. Curry reports no new changes to her health and states she is eager to be underway with surgery. Exam Const General: cooperative, healthy appearing, comfortable and no acute distress Orientation: alert, awake and oriented x3 Neck Other: Patient's neck is examined with ultrasound. There is evidence of a high riding innominate vessel on the right but juxtaposed between this and the patient's common carotid artery is a hypoechoic oval that measures 1.2 x 0.8 cm in the mid polar region of the thyroid just deep to that area. Assessment and Plan Assessment and Plan (1) Hyperparathyroidism: Status: Chronic Comment: A 75-year-old female with a longstanding history of hypercalcemia diagnosed with primary hyperparathyroidism after correction of vitamin D deficiency. She has clear evidence of bone mineral disease with osteopenia diagnosed in 2013 on routine DEXA scan. She has no history of nephrolithiasis but does have chronic renal disease. Additional potential symptoms include recent fatigue and constipation. After thyroid ultrasound and SPECT nuc med studies, there is no clear evidence of a parathyroid adenoma. However, my personal repeat ultrasound does show suspicion of a parathyroid adenoma in the right mid polar region. With this work-up, I would like to proceed for parathyroidectomy versus subtotal parathyroidectomy with possible bilateral exploration. Plan to start on the right side of the neck and remove any suspicious glands on this side with intraoperative PTH monitoring. I would plan for an outpatient procedure. This plan was communicated to patient and she is agreeable. She is also informed of postoperative expectations. Plan - Dr. Johnny Busch MD: Minimal invasive parathyroidectomy versus subtotal parathyroidectomy with intraoperative PTH and nerve monitoring. Patient to obtain preoperative PTH level on the day of surgery. In the interim, I will review imaging with radiology. I have re-examined the patient. There are no clinical changes since date of exam. Reviewed the details of the procedure and postoperative expectations with both patient and her daughter is now at bedside. Plan to proceed as described above.
[2021-09-24 07:30] LABS: PTHIN 81.1 pg/mL (18.4-80.1)
[2021-09-24] MEDS: Bupivacaine 0.25% 30 ML Vial (08:13)
[2021-09-24 09:36] LABS: PTHIN 104.9 pg/mL (18.4-80.1)
[2021-09-24 09:40] LABS: PTHIN 105.9 pg/mL (18.4-80.1)
[2021-09-24 11:38] LABS: PTHIN 103.5 pg/mL (18.4-80.1)
[2021-09-24 11:42] LABS: PTHIN 34.7 pg/mL (18.4-80.1)
--- NOTE | 2021-09-24 12:09 | PCM.OPRPT ---
Problems Associated Problem List Diagnoses (1) Hyperparathyroidism: Report of Operation Date of Procedure: 09/24/21 Pre-Operative Diagnosis: Primary hyperparathyroidism Post-Operative Diagnosis: Same Surgery/Procedure Performed:: Parathyroidectomy (2) with bilateral 4 gland exploration, intraoperative PTH and nerve monitoring Description of Surgical Findings:: ?Hyperplastic right inferior parathyroid gland ?grossly?normal right superior parathyroid gland ?grossly?normal left inferior parathyroid gland thymic ligament (biopsy confirmed parathyroid) ?hyperplastic left superior parathyroid gland coursing beneath recurrent laryngeal nerve (500 mg by frozen section) Surgeon: Johnny Busch medical billing manager: Tati Alexandra Type of Anesthesia: General/Supplemental Anesthesiologist: Varun Garcia Specimen's removed: Right inferior parathyroid gland, left superior parathyroid gland, biopsy of left inferior parathyroid gland Drains: NA Estimated Blood Loss (mL): 20 Description of Procedure: After appropriate identification in the preoperative holding area the patient was brought to the operating room where she was positioned supine on the operating room table. There she underwent induction of general endotracheal anesthetic. A NIMs vocalis muscle/nerve monitor tube was placed under glidescope visualization to ensure coaptation of the cords to the tube electrodes. Patient was then positioned with both arms tucked and head extension on a gel roll taking care to pad any pressure points. The grounding and stim wires were placed in the presternal soft tissue according to NIM set up and were connected to the movement assembly final inspector. The electrodes from the tube were also connected to the movement assembly final inspector. The monitor showed satisfactory levels of impedance. The lower chin, neck and upper chest were prepped and draped in usual sterile fashion. The nearest natural skin crease to the patient's cricoid cartilage was selected incision and marked out with marking pen 4 cm wide. 10 mL of half percent bupivacaine was infiltrated locally to provide a local block. This incision was made sharply and extended down through the platysma. The strap muscles were opened longitudinally taking us down to the level of the thyroid gland. Sternothyroid muscle was partially divided at the superior pole of the thyroid gland on both sides to facilitate better exposure. Then the overlying strap muscles were taken off of the thyroid capsule on the right with electrocautery. The middle thyroid vein was taken with the LigaSure and the thyroid was retracted medially. This exposed a enlarged right inferior parathyroid gland. This gland was carefully dissected from the surrounding thyroid parenchyma and its vascular pedicle was divided. It was passed off the field for frozen section and pathologic processing. I then examined the superior portion of the thyroid gland grossly and identified the superior parathyroid gland which appeared to be normal in color and size. At 10 and 15 minutes post?gland excision, I then obtained right internal jugular blood samples using a 22-gauge needle and applying pressure thereafter to maintain hemostasis. Unfortunately, the PTH values for these blood draws were 104.9 and 105.9, respectively. With these results, I determined that patient likely had a gland on the contralateral side driving this abnormal level. Prior to moving to the other side, I did obtain a vagal nerve signal with our nerve monitor. Then, the left thyroid lobe was exposed in the same manner as the right had been by bluntly the overlying sternothyroid muscle from the thyroid gland and selectively using LigaSure for denser attachments. The middle thyroid vein was divided with LigaSure. With the thyroid lobe reflected medially, I examined the posterior aspect of the left thyroid lobe. There seemed to be a small parathyroid gland that was adenomatous in color in the mid polar region but nothing else was immediately obvious. 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 Therefore this dissection was abandoned and I moved inferiorly to the thyroid thymic ligament. Here, I found a normal?appearing parathyroid gland. A biopsy of the gland was sent to confirm its identity and a clip was placed adjacent to the parathyroid remnant. As I moved back cephalad to the adenomatous?appearing parathyroid I found the recurrent laryngeal nerve and coursing beneath the nerve was additional parathyroid gland indicating a deep tracheoesophageal adenoma. Great care was used to bluntly dissect the gland from the underside of the recurrent laryngeal nerve and delivered into the surgical field. The gland was then dissected back to its vascular pedicle and completely removed. Post excision recurrent laryngeal nerve function was confirmed. Left internal jugular blood draws were obtained at 10 and 15 minutes post?excision. Since this clearly represented a adenomatous parathyroid gland, and the remaining parathyroid tissue appeared grossly normal, I elected to begin closure. But first, I ensured hemostasis in the bilateral operative sites. Once satisfied, the strap muscles were closed longitudinally with a running 2-0 Vicryl. The platysma was reapproximated in an interrupted fashion with 3-0 Vicryl. Then the skin was closed in a subcuticular fashion with 4-0 Monocryl. 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 Our PTH values returned as 103.5 and 34.7, respectively. I suspected that the patient's chronic renal dysfunction was likely to blame for the slower fall of the PTH, but wanting to confirm the 34.7, I attempted to obtain a peripheral sample. Able to obtain the sample from the bilateral external jugular veins so a separate stick was made in the patient's dorsal hand and the lab was collected. Final PTH was 26.8. Satisfied with this result, patient's wound was sealed with Steri-Strips and covered with OpSite dressings. Patient was awoken from general anesthetic and taken to PACU for ongoing recovery. Complications None Admit VTE Documentation VTE Mechan Device Prophylaxis: SCD's
--- NOTE | 2021-09-24 12:14 | EX.PCM.DISCH ---
Discharge Instructions Diet Discharge Diet: No restrictions Activity Discharge Activity: May Not Drive (While it remains difficult to check blind spots) Ice area for (Minutes): 20 Lifting Restrictions: <15lbs for 2 weeks after surgery Dressing / Incision Call your doctor if your incision/area has: Increased Redness Call your doctor if you observe: Fever of 101 or Higher and Numbness or Tingling Remove Dressing in: 1 day Cleanse incision/area with: Soap & Water Additional Dressing/Incision Instructions:: Leave Steri-Strips intact until follow-up Follow Up Care Please Follow Up With: Johnny Busch MD When: 1 week postop Test Results: Test results from this visit will be discussed in further detail at your follow-up appointment, if applicable. Discharge Plan Admission Primary Reason for Your Visit: Primary hyperparathyroidism Attending Provider: Johnny Busch Primary Care Provider: Carey Souza Discharge Orders/Prescriptions Prescriptions: New calcium carbonate-vitamin D3 600 mg(1,500mg) -400 unit capsule 1 cap PO TID Qty: 90 RF: 2 Continued hydroxychloroquine 200 mg tablet 200 mg PO BID RF: 0 mirabegron 25 mg tablet extended release 24 hr 25 mg PO DAILY RF: 0 tizanidine [Zanaflex] 2 mg capsule 2 mg PO QHS RF: 0 Other Ambulatory Orders: 12 Lead EKG (Routine) Location: None Selected Ordered By: Dr. Feliciano Baron Referrals / Follow Up: Carey Souza DO [Primary Care Provider] - Disposition Disposition (needs filled in before D/C Order can be placed): Home, Self Care
[2021-09-24 12:23] LABS: PTHIN 26.8 pg/mL (18.4-80.1)
[2021-09-24 13:31] LABS: PTHIN 22.5 pg/mL (18.4-80.1)
== END 2021-09-24 15:14 | disposition home or self-care (01) ==
LOC: SDC 05:50 → AC 05:51
PROVIDERS: Anesthesiology; Psychiatry & Neurology Neurology; PCP Family Medicine; Referring Provider Surgery; Visit Provider Surgery
PROC: (CPT 60500; principal; 2021-09-24 07:15)
DX: E21.0 Primary hyperparathyroidism (principal); M19.90 Unspecified osteoarthritis, unspecified site; I48.91 Unspecified atrial fibrillation; G47.30 Sleep apnea, unspecified; M32.9 Systemic lupus erythematosus, unspecified; M85.80 Other specified disorders of bone density and structure, unspecified site; N18.30 Chronic kidney disease, stage 3 unspecified; R94.31 Abnormal electrocardiogram [ECG] [EKG]; Z79.899 Other long term (current) drug therapy
CPT/HCPCS: 00320; 60500; 36415; 80048; 83970; 85027; 85610; 85730; 88305; 88331; 93005; J7120

== ENCOUNTER → 2021-10-01 09:54 | Outpatient (CLI) | payer MEDICARE, OTHER, SELFPAY ==
[2021-10-01 10:27] LABS: Calcium,Total 10.3 mg/dL (8.5-10.1)
[2021-10-01 10:36] LABS: PTHIN 52.7 pg/mL (18.4-80.1)
== END ==
PROVIDERS: PCP Family Medicine; Referring Provider Surgery; Visit Provider Surgery
DX: E89.2 Postprocedural hypoparathyroidism (principal)
CPT/HCPCS: 36415; 82310; 83970

== ENCOUNTER → 2021-10-05 12:14 | Outpatient (CLI) | payer MEDICARE, OTHER, SELFPAY ==
[2021-10-05 15:26] LABS: Absolute Neutrophil Count 2.9 X10^3/uL (2.0-7.7); Basophil# 0.03 X10^3/uL; Basophil% 0.5 % (0-1); Eosinophil# 0.18 X10^3/uL; Eosinophils% 3.1 % (0-5); Hematocrit 44.4 % (37-47); Hemoglobin 14.1 g/dL (12.0-15.0); Lymphocyte % 37.5 % (19-41); Mean Corp Hgb Conc 31.8 g/dL (32-36); Mean Corpuscular Hgb 30.4 pg (27.0-32.0); Mean Corpuscular Volume 95.7 fL (81-99); Mean Platelet Vol. 11.1 fl (6.2-12.0); Monocyte# 0.51 X10^3/uL; Monocyte% 8.7 % (0-10); NRBC Flagged by Analyzer 0 % (0-5); Neutrophil # 2.93 X10^3/uL (2.7-7.7); Platelet Count 230 K/mm3 (150-450); RBC Distribution Width CV 12.9 % (11.6-14.6); RBC Distribution Width SD 45.7 fl (35.1-43.9); Red Blood Count 4.64 M/mm3 (4.2-5.4); White Blood Count 5.9 K/mm3 (4.4-11.0)
[2021-10-05 15:59] LABS: Protein, Urine (Random) 31.4 mg/dL (<11.9); Protein:Creat Ratio 211 mg/g CRE (0-200)
[2021-10-05 16:02] LABS: AST(SGOT) 18 U/L (15-37); Alanine Aminotransfer ALT/SGPT 22 U/L (13-56); Albumin, Serum 3.8 g/dL (3.2-5.0); Alkaline Phosphatase 129 U/L (45-117); Anion Gap 5 (5-15); BUN 38 mg/dL (7-18); BUN/Creat Ratio 30.2 RATIO (10-20); Calcium,Total 9.6 mg/dL (8.5-10.1); Chloride 108 mmol/L (98-107); Creatinine, Serum 1.26 mg/dL (0.55-1.02); EST Glomerular Filtration Rate 44 mL/min (>60); Est Glom Filt Rate - Afr Amer 53 mL/min (>60); Glucose 82 mg/dL (74-106); Potassium 4.2 mmol/L (3.5-5.1); Protein, Total 7.8 g/dL (6.4-8.2); Sodium Level 139 mmol/L (136-145)
[2021-10-05 16:23] LABS: Color, Urine Yellow (Yellow); Glucose, Dipstick Normal (Normal); Ketone-Dipstick Negative (Negative); Leukocyte Esterase-Dipstick Negative /ul (Negative); Nitrite-Dipstick Negative (Negative); Occult Blood-Urine Negative /ul (Negative); Protein-Dipstick 15 mg/dl (Negative); Urine Bilirubin Dipstick Negative (Negative); Urine Clarity Sl. Cloudy (Clear); Urine Urobilinogen Normal (Normal)
== END ==
PROVIDERS: PCP Family Medicine; Referring Provider Internal Medicine Rheumatology; Visit Provider Internal Medicine Rheumatology
DX: M32.9 Systemic lupus erythematosus, unspecified (principal); M16.0 Bilateral primary osteoarthritis of hip; M17.0 Bilateral primary osteoarthritis of knee; I34.1 Nonrheumatic mitral (valve) prolapse; G47.33 Obstructive sleep apnea (adult) (pediatric)
CPT/HCPCS: 36415; 80053; 81002; 82570; 84156; 85025

== ENCOUNTER → 2021-11-01 11:43 | Outpatient (CLI) | payer MEDICARE, OTHER, SELFPAY ==
[2021-11-01 12:14] LABS: Calcium,Total 9.9 mg/dL (8.5-10.1)
[2021-11-01 12:19] LABS: PTHIN 70.4 pg/mL (18.4-80.1)
== END ==
PROVIDERS: PCP Family Medicine; Referring Provider Surgery; Visit Provider Surgery
DX: E89.2 Postprocedural hypoparathyroidism (principal)
CPT/HCPCS: 36415; 82310; 83970

== ENCOUNTER 2021-12-06 12:10 | Outpatient (CLI) | payer MEDICARE, OTHER, SELFPAY ==
[2021-12-06 13:28] LABS: Calcium,Total 10.5 mg/dL (8.5-10.1)
[2021-12-06 13:33] LABS: PTHIN 45.4 pg/mL (18.4-80.1)
== END 2021-12-06 23:59 | disposition short-term general hospital (02) ==
PROVIDERS: PCP Family Medicine; Referring Provider Surgery; Visit Provider Surgery
DX: E83.52 Hypercalcemia (principal); E21.3 Hyperparathyroidism, unspecified
CPT/HCPCS: 36415; 82310; 83970

== ENCOUNTER 2022-01-07 12:12 | Outpatient (CLI) | payer MEDICARE, OTHER, SELFPAY ==
[2022-01-07 13:03] LABS: Absolute Lymphocyte Count 1.84 X10^3/uL (0.83-4.51); Basophil# 0.03 X10^3/uL; Basophil% 0.5 % (0-1); Eosinophil# 0.17 X10^3/uL; Eosinophils% 2.6 % (0-5); Hematocrit 45.3 % (37-47); Hemoglobin 14.7 g/dL (12.0-15.0); Lymphocyte # 1.84 X10^3/ul (0.83-4.51); Lymphocyte % 28.3 % (19-41); Mean Corp Hgb Conc 32.5 g/dL (32-36); Mean Corpuscular Hgb 30.8 pg (27.0-32.0); Mean Platelet Vol. 10.2 fl (6.2-12.0); Monocyte# 0.48 X10^3/uL; Monocyte% 7.4 % (0-10); NRBC Flagged by Analyzer 0 % (0-5); Neutrophil # 3.98 X10^3/uL (2.7-7.7); Platelet Count 208 K/mm3 (150-450); RBC Distribution Width CV 12.8 % (11.6-14.6); RBC Distribution Width SD 45.2 fl (35.1-43.9); Red Blood Count 4.77 M/mm3 (4.2-5.4); White Blood Count 6.5 K/mm3 (4.4-11.0)
[2022-01-07 13:20] LABS: Color, Urine Yellow (Yellow); Glucose, Dipstick Normal (Normal); Ketone-Dipstick Negative (Negative); Leukocyte Esterase-Dipstick Negative /ul (Negative); Nitrite-Dipstick Negative (Negative); Occult Blood-Urine Negative /ul (Negative); Protein-Dipstick 15 mg/dl (Negative); Specific Gravity, Urine 1.025 (1.002-1.030); Urine Bilirubin Dipstick Negative (Negative); Urine Clarity Sl. Cloudy (Clear); Urine Urobilinogen Normal (Normal)
[2022-01-07 13:21] LABS: AST(SGOT) 20 U/L (15-37); Alanine Aminotransfer ALT/SGPT 22 U/L (13-56); Albumin, Serum 3.9 g/dL (3.2-5.0); Alkaline Phosphatase 101 U/L (45-117); Anion Gap 7 (5-15); BUN 32 mg/dL (7-18); BUN/Creat Ratio 21.8 RATIO (10-20); Calcium,Total 9.4 mg/dL (8.5-10.1); Chloride 108 mmol/L (98-107); Creatinine, Serum 1.47 mg/dL (0.55-1.02); EST Glomerular Filtration Rate 37 mL/min (>60); Est Glom Filt Rate - Afr Amer 45 mL/min (>60); Globulin 3.8 g/dL (2.2-4.2); Glucose 96 mg/dL (74-106); Potassium 4.3 mmol/L (3.5-5.1); Protein, Total 7.7 g/dL (6.4-8.2); Sodium Level 139 mmol/L (136-145)
[2022-01-07 13:30] LABS: Protein, Urine (Random) 27.6 mg/dL (<11.9); Protein:Creat Ratio 124 mg/g CRE (0-200)
[2022-01-07 13:53] LABS: PTHIN 58.9 pg/mL (18.4-80.1)
== END 2022-01-07 23:59 | disposition home or self-care (01) ==
LOC: PAVLAB 12:16
PROVIDERS: Internal Medicine Rheumatology; PCP Family Medicine; Referring Provider Surgery; Visit Provider Surgery
DX: M32.9 Systemic lupus erythematosus, unspecified (principal); E21.3 Hyperparathyroidism, unspecified; M16.0 Bilateral primary osteoarthritis of hip; M17.0 Bilateral primary osteoarthritis of knee; I34.1 Nonrheumatic mitral (valve) prolapse; G47.33 Obstructive sleep apnea (adult) (pediatric); M85.80 Other specified disorders of bone density and structure, unspecified site
CPT/HCPCS: 36415; 80053; 81002; 82570; 83970; 84156; 85025

== ENCOUNTER 2022-02-14 08:00 | Outpatient (RCR) | payer MEDICARE, OTHER, SELFPAY ==
--- NOTE | 2022-02-05 10:25 | HP.PTEVAL_ITS ---
Patient's Visit Information KRISTI CURRY is a 76 year old F referred to Physical Therapy by DAPHNE MALONEY with a diagnosis of L knee OA, prehab for L TKA. Date of Evaluation: 02/05/22 Physical Therapist: Juan Harris DPT - Visit Plan Frequency: 1x/Week Duration: 4 Weeks Plan: Start with ROM of L knee AROM, add in hip, quad strengthening. Progress HEP as tolerated. Pain free exercises. - Subjective Pt. is here today for her initial evaluation with diagnosis of L knee OA. She is his here for prehab with hopes of having a L TKA in March. Pt. reports having overall increasing pain in her L knee for a few years now. She reports increased pain with all WBing activities. 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 She has had Rick hip replacement, and R knee replacement previously. Pt. denies N/T in either LE. Pt. reports increased LLE edema at times and pain that progressively worsens as the day and activities increase. Pt. is now having difficulty walking longer distances, stairs, squatting, and pain throughout the day. Pt. is hopeful to have her L knee replaced allowing for increased tolerance to all activities and recreational activities without limitations. - Pain L knee Pain Intensity (Out of 10): 0 Pain Intensity Range: 0, 10 Comment: mostly with standing, walking, stairs. - Objective POSTURE: Pt. has Varus knee positioning in stance. Increases with walking during SLS. PALPATION: pt. has tenderness along medial joint line pain. Pt. has no popliteal fossa pain. No patella tendon pain. NEURO: Pt. has normal sensation in LEs. Normal DTR of B Achillies and Patellar DTR. Pt. is able to rise on heels and toes without limitations. ROM: L knee 0-8-91deg. Pt. has tightness in HS as well. Pain at end ranges noted, worse with extension. MMT: LLE: ankle DF 15.1#, PF 39.1#; knee: ext 34.2#, flexion 31.5#; hip: flexion 21.2#, abd 13.3#. GAIT: Pt. ambulates without AD, but has increased lateral hip sway. Pt. has decreased TKE during L stance phase. She has decreased R step length as well. STAIRS: step to pattern loading RLE only with use of BHR. - Balance/Special Test Scores Lower Extremity Functional Score: 43 - Goals Goal 1:: LTG: pt. to be I with HEP for LLE ROM and strengthening. Goal Time Frame: 2-4 Weeks Goal 2:: STG: Pt. to have increased L knee ext to neutral. Goal Time Frame: 2 Weeks Goal 3:: LTG: Pt. to have increased LLE strength by 10# of force throughout. Goal Time Frame: 4-6 Weeks - Rehabilitation Potential Physical Therapy Diagnosis: Pt. has signs and symptoms consistent with L knee OA. She has subsequent hypomobility, LLE weakness, increased pain and difficulty with walking. Pt. would benefit from PT to address the above limitations in order to get ready for potential L TKA. Rehabilitation Potential: Good - Anticipated Interventions Patient/Client Instruction: Educate patient on: Condition, Plan of Care, Risk Factors, Benefits of Fitness Program For the Purpose of:: To foster healthy habits, To improve decision making, To facilitate caregiver knowledge, To improve self management, To prevent re- injury, To improve ability to perform tasks related to life management, To improve tolerance to ADL's Therapeutic Exercise to Include: Strength training, Power training, Body mechanics, Flexibilty training, Gait and locomotor training, Passive ROM, Active ROM For the Purpose of:: To decrease pain, To decrease swelling/inflammation, To increase ROM, To improve nutrient delivery to tissue, To increase oxygenation perfusion, To improve muscle performance and motor function, To improve ability of physical actions for home/community/work/leisure, To improve gait and locomotor functions, To improve health of tissue, To decrease soft tissue restriction, To increase flexibility/ROM Thank you for the opportunity to evaluate your patient. For Medicare and Medicare HMO plans, please review the plan of care and approve it. It will need to be FAXED BACK to us at [phone] for Medicare purposes. For Medicare only, by signing this I certify the plan of care. Please let me know if there are questions or concerns regarding this plan of care. Physician Signature: Date:
--- NOTE | 2022-02-14 08:36 | HP.PTDCSUM ---
It has been my pleasure to treat KRISTI CURRY referred by DAPHNE MALONEY, with the diagnosis of L knee OA, prehab for L TKA for a total of 2 visit(s). Discharge Date: 02/14/22 Please see the following information for a summary of their discharge status. Subjective: Pt. L knee Pain Intensity (Out of 10): 2 % Improvement: 25 Objective/Function: Pt. tolerated all exercises without adverse reaction. ROM: 0-3-93deg knee ROM. MMT: LLE: ankle 5/5 throughout; knee: ext 4/5, flexion 4+/5; hip flexion 4/5, abd 4/5, ext 4/5. GAIT: Pt. ambulates with SPC with decent posture. She does have increased R lateral lean during L stance phase. Pt. has increased lateral sway. Pt. is scheduled to have a L TKA in late March. At this point in time I have given her exercises to work on to progress HS length, knee ROM and LLE strength in order to have a better post surgical outcome. She is doing well with her exercises and is I with them at this point in time. I will Dc to HEP I at this point in time. Goal 1:: LTG: pt. to be I with HEP for LLE ROM and strengthening. Goal Progress: Goal Met Goal 2:: STG: Pt. to have increased L knee ext to neutral. Goal Progress: Goal Met Goal 3:: LTG: Pt. to have increased LLE strength by 10# of force throughout. Goal Progress: Progressing Plan: Pt. will be DC to HEP to work on HS length, knee ROM and LLE strength in order to have a better post surgical outcome. Discharge Comments: Pt. was treated for prehab for her L knee with her going to have TKA at end of March. She is I with her ROM/strengthening exercises and desires to complete I now. She was able to complete them without further instruction and properly. I will DC to these exercises this date. Pt. to complete leading up to surgery with focus on maintain LE strength and knee ROM. If there are questions or concerns regarding this patient's physical therapy, please feel free to call me at [phone]. Thank you for the referral of this patient. Sincerely, Juan Stubbs Sipos, DPT Balance/Gait/Functional tests - Balance/Special Test Scores Lower Extremity Functional Score: 43
== END 2022-02-14 19:00 | disposition home or self-care (01) ==
LOC: PT 08:00
PROVIDERS: PCP Family Medicine
DX: M17.12 Unilateral primary osteoarthritis, left knee (principal)
CPT/HCPCS: 97110; 97161

== ENCOUNTER → 2022-04-23 | Outpatient (CLI) | payer MEDICARE, OTHER, SELFPAY ==
[2022-04-23 15:34] LABS: Absolute Lymphocyte Count 1.51 X10^3/uL (0.83-4.51); Basophil# 0.04 X10^3/uL; Basophil% 0.8 % (0-1); Eosinophil# 0.24 X10^3/uL; Eosinophils% 4.6 % (0-5); Hematocrit 41.9 % (37-47); Hemoglobin 12.9 g/dL (12.0-15.0); Lymphocyte # 1.51 X10^3/ul (0.83-4.51); Lymphocyte % 28.7 % (19-41); Mean Corp Hgb Conc 30.8 g/dL (32-36); Mean Corpuscular Hgb 30.4 pg (27.0-32.0); Mean Corpuscular Volume 98.6 fL (81-99); Mean Platelet Vol. 9.9 fl (6.2-12.0); Monocyte# 0.44 X10^3/uL; Monocyte% 8.4 % (0-10); NRBC Flagged by Analyzer 0 % (0-5); Neutrophil # 3.02 X10^3/uL (2.7-7.7); Neutrophil % 57.3 % (47-70); Platelet Count 233 K/mm3 (150-450); RBC Distribution Width CV 13.4 % (11.6-14.6); RBC Distribution Width SD 49.1 fl (35.1-43.9); Red Blood Count 4.25 M/mm3 (4.2-5.4); White Blood Count 5.3 K/mm3 (4.4-11.0)
[2022-04-23 15:47] LABS: AST(SGOT) 16 U/L (15-37); Alanine Aminotransfer ALT/SGPT 23 U/L (13-56); Alkaline Phosphatase 111 U/L (45-117); Anion Gap 5 (5-15); BUN 28 mg/dL (7-18); Calcium,Total 9.3 mg/dL (8.5-10.1); Chloride 104 mmol/L (98-107); EST Glomerular Filtration Rate 39 mL/min (>60); Est Glom Filt Rate - Afr Amer 47 mL/min (>60); Globulin 3.9 g/dL (2.2-4.2); Glucose 100 mg/dL (74-106); Potassium 4.3 mmol/L (3.5-5.1); Protein, Total 7.9 g/dL (6.4-8.2); Sodium Level 138 mmol/L (136-145)
== END | disposition home or self-care (01) ==
LOC: MTLAB 12:36
PROVIDERS: PCP Family Medicine; Referring Provider Internal Medicine Rheumatology; Visit Provider Internal Medicine Rheumatology
DX: M32.9 Systemic lupus erythematosus, unspecified (principal); E21.3 Hyperparathyroidism, unspecified; M16.0 Bilateral primary osteoarthritis of hip; M17.0 Bilateral primary osteoarthritis of knee; F32.89 Other specified depressive episodes; I34.1 Nonrheumatic mitral (valve) prolapse; G47.33 Obstructive sleep apnea (adult) (pediatric); M85.80 Other specified disorders of bone density and structure, unspecified site
CPT/HCPCS: 36415; 80053; 85025

== ENCOUNTER 2022-09-25 12:46 | Inpatient (IN) | payer MEDICARE, OTHER, SELFPAY ==
[2022-09-25] VITALS (7 sets, daily range): BP systolic 121–157; BP diastolic 72–92; PULSE 72–93; RESP 12–18; TEMP 36.6–37.1; O2SAT 95–99; BMI 41.5; BMI 41.1
--- NOTE | 2022-09-25 16:00 | EKG12_ITS ---
Test Reason : SOB Blood Pressure : / mmHG Vent. Rate : 079 BPM Atrial Rate : 079 BPM P-R Int : 174 ms QRS Dur : 100 ms QT Int : 390 ms P-R-T Axes : 060 -33 034 degrees QTc Int : 447 ms Normal sinus rhythm with sinus arrhythmia Left axis deviation Abnormal ECG Confirmed by JAMES REYEZ, ESTEFANÍA ([id number]), material expeditor MARIA LUZ DESAI ([id number]) on 09/27/2022 2:18:24 P M Referred By: ELVIA/KENNEY Confirmed By:RAVEN RAMIREZ MD
--- NOTE | 2022-09-25 16:00 | VDLE_ITS ---
Reason For Study: Swelling RIGHT LEFT GSV is normal. GSV is normal. CFV is compressible, spontaneous, phasic, CFV is compressible, spontaneous, phasic, competent and demonstrates normal competent, and demonstrates normal augmentation. augmentation. FV is compressible, spontaneous, phasic, FV is compressible, spontaneous, phasic, competent and demonstrates normal competent and demonstrates normal augmentation. augmentation. POP V is compressible, spontaneous, phasic, POP V is compressible, spontaneous, phasic, competent and demonstrates normal competent and demonstrates normal augmentation. augmentation. T/P Trunk is compressible. T/P Trunk is compressible. PTV is compressible. PTV is compressible. RT PerV is compressible. LT PerV is compressible. Procedure This is a venous duplex using B-mode, color flow and spectral Doppler. Exam performed portable in ED. The study was technically difficult. The study was technically limited. Difficult to visualize calf veins bilaterally due to swelling. A preliminary report was called and/or faxed to Dr. Ramon. VL/Venous Duplex US - Rick Extrem Interpretation Summary Deep veins of the lower extremities are bilaterally patent and compressible seg mentally. There is no evidence of deep vein thrombosis on either side. Valvular competence appears in tact within the proximal deep venous systems bilaterally. The great saphenous veins appear bila terally patent and compressible segmentally. Ordering Physician: Dayan Ramon Referring Physician: Carey Souza Performed By: Juana Haro, ANNABEL, RVT
[2022-09-25 16:32] LABS: Anion Gap 6 (5-15); BUN 25 mg/dL (7-18); BUN/Creat Ratio 26.3 RATIO (10-20); CPK Total, Creatine Kinase 120 U/L (26-192); Calcium,Total 9.5 mg/dL (8.5-10.1); Chloride 108 mmol/L (98-107); Creatinine, Serum 0.95 mg/dL (0.55-1.02); EST Glomerular Filtration Rate 61 mL/min (>60); Est Glom Filt Rate - Afr Amer 74 mL/min (>60); Estimated Creatinine Clearance 46.04 ml/min; Glucose 91 mg/dL (74-106); Sodium Level 139 mmol/L (136-145)
[2022-09-25 16:39] LABS: Erythrocyte Sedimentation Rate 47 mm/hr (0-30)
[2022-09-25 16:41] LABS: Absolute Lymphocyte Count 1.84 X10^3/uL (0.83-4.51); Absolute Neutrophil Count 6.2 X10^3/uL (2.0-7.7); Basophil# 0.03 X10^3/uL; Basophil% 0.3 % (0-1); Eosinophil# 0.21 X10^3/uL; Eosinophils% 2.3 % (0-5); Hemoglobin 11.5 g/dL (12.0-15.0); Lymphocyte # 1.84 X10^3/ul (0.83-4.51); Lymphocyte % 20.4 % (19-41); Mean Corp Hgb Conc 31.9 g/dL (32-36); Mean Corpuscular Hgb 30.3 pg (27.0-32.0); Mean Platelet Vol. 9.6 fl (6.2-12.0); Monocyte# 0.75 X10^3/uL; Monocyte% 8.3 % (0-10); NRBC Flagged by Analyzer 0 % (0-5); Neutrophil # 6.17 X10^3/uL (2.7-7.7); Neutrophil % 68.4 % (47-70); Platelet Count 306 K/mm3 (150-450); RBC Distribution Width SD 44.9 fl (35.1-43.9); Red Blood Count 3.79 M/mm3 (4.2-5.4)
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
--- NOTE | 2022-09-25 17:29 | NURSING ---
DR JOHNSON FOR DR PHELAN
--- NOTE | 2022-09-25 17:40 | NURSING ---
MED SURG KOTSONIS CELLULITIS, FAILURE OF OUTPATIENT ANTIBOTICS
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
[2022-09-25] MEDS: Acetaminophen 325 MG Tablet 1300 MG PO (18:47)
[2022-09-25] MEDS: Mirabegron 25 MG TAB.ER.24H PO (21:30)
[2022-09-25] MEDS: Hydroxychloroquine 200 MG Tablet PO (21:30)
[2022-09-25] MEDS: Cefazolin 1 GM/50 ML BAG IV (21:32)
[2022-09-26 02:30] VITALS: BP 150/86; PULSE 66; RESP 16; TEMP 36.4; O2SAT 96
[2022-09-26] MEDS: Acetaminophen 325 MG Tablet 1300 MG PO ×2 (03:02→17:25)
[2022-09-26] MEDS: Cefazolin 1 GM/50 ML BAG IV ×3 (05:24→21:08)
[2022-09-26 07:00] LABS: Absolute Lymphocyte Count 1.27 X10^3/uL (0.83-4.51); Basophil# 0.02 X10^3/uL; Basophil% 0.3 % (0-1); Eosinophil# 0.24 X10^3/uL; Hematocrit 32.8 % (37-47); Hemoglobin 10.4 g/dL (12.0-15.0); Lymphocyte # 1.27 X10^3/ul (0.83-4.51); Lymphocyte % 20.9 % (19-41); Mean Corp Hgb Conc 31.7 g/dL (32-36); Mean Corpuscular Volume 97.9 fL (81-99); Monocyte# 0.53 X10^3/uL; Monocyte% 8.7 % (0-10); NRBC Flagged by Analyzer 0 % (0-5); Neutrophil # 3.99 X10^3/uL (2.7-7.7); Neutrophil % 65.8 % (47-70); Platelet Count 259 K/mm3 (150-450); RBC Distribution Width CV 13.1 % (11.6-14.6); Red Blood Count 3.35 M/mm3 (4.2-5.4); White Blood Count 6.1 K/mm3 (4.4-11.0)
[2022-09-26 07:23] LABS: Anion Gap 4 (5-15); BUN 22 mg/dL (7-18); BUN/Creat Ratio 26.6 RATIO (10-20); Calcium,Total 8.8 mg/dL (8.5-10.1); Chloride 110 mmol/L (98-107); Creatinine, Serum 0.83 mg/dL (0.55-1.02); EST Glomerular Filtration Rate 72 mL/min (>60); Est Glom Filt Rate - Afr Amer 87 mL/min (>60); Glucose 99 mg/dL (74-106); Sodium Level 141 mmol/L (136-145)
[2022-09-26 08:01] VITALS: BP 133/94; PULSE 66; RESP 18; TEMP 36.4; O2SAT 98
[2022-09-26] MEDS: Hydroxychloroquine 200 MG Tablet PO ×2 (09:03→21:08)
[2022-09-26] MEDS: Enoxaparin 40 MG/0.4 ML Syringe SC (09:03)
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
[2022-09-26] MEDS: Ibuprofen 400 MG Tablet PO (13:24)
[2022-09-26 14:44] VITALS: BP 120/65; PULSE 72; RESP 16; TEMP 36.9; O2SAT 96
[2022-09-26] MEDS: 0.9% Saline Lock 10 ML Syringe IV (14:50)
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
--- NOTE | 2022-09-26 16:13 | CASEMGMT ---
Social Work Pt informed RN and RNCM that she does not have a Living Will nor Health Care POA. AMANDA Licona
[2022-09-26 20:59] VITALS: BP 132/66; PULSE 66; RESP 16; TEMP 36.6; O2SAT 98
[2022-09-26] MEDS: MELATONIN 3 MG TABLET PO (21:08)
[2022-09-26] MEDS: Mirabegron 25 MG TAB.ER.24H PO (21:08)
[2022-09-27] MEDS: Acetaminophen 325 MG Tablet 1300 MG PO ×2 (02:06→14:16)
[2022-09-27 02:10] VITALS: BP 139/83; PULSE 66; RESP 16; TEMP 36.4; O2SAT 97
[2022-09-27] MEDS: Cefazolin 1 GM/50 ML BAG IV (06:24)
[2022-09-27 08:15] VITALS: BP 118/69; PULSE 60; RESP 16; TEMP 36.4; O2SAT 100
--- NOTE | 2022-09-27 09:42 | DCINST_ITS ---
Discharge Instructions Diet Discharge Diet: No restrictions Activity Discharge Activity: Return to Normal Activity Follow Up Care Test Results: Test results from this visit will be discussed in further detail at your follow- up appointment, if applicable. Discharge Plan Admission Admit Date/Time: 09/25/22 17:59 Primary Reason for Your Visit: Bilateral leg cellulitis Attending Provider: Shira Mayes Primary Care Provider: Carey Souza Consulting Providers: Oscar Domingo Instructions Additional Instructions / Restrictions: Complete your antibiotics Follow-up with your primary care doctor within 1 week Discharge Orders/Prescriptions Prescriptions: New cephalexin 500 mg capsule 500 mg PO Q8H 5 Days Qty: 15 0RF Continued hydroxychloroquine 200 mg tablet 200 mg PO BID mirabegron 25 mg tablet extended release 24 hr 25 mg PO QHS acetaminophen [Tylenol Arthritis Pain] 650 mg Tablet Extended Release 1,300 mg PO Q8H PRN (Reason: Pain) Discontinued clindamycin HCl 150 mg capsule 450 mg PO Q8H Referrals / Follow Up: Carey Souza DO [Primary Care Provider] - In 1 Week Disposition Disposition (needs filled in before D/C Order can be placed): Home, Self Care
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
[2022-09-27] MEDS: Hydroxychloroquine 200 MG Tablet PO (10:23)
--- NOTE | 2022-09-27 11:50 | CASEMGMT ---
RN CM in to room to discuss discharge needs with patient. Patient denies needs at this time.
[2022-09-27 15:00] VITALS: BP 128/79; PULSE 65; RESP 17; TEMP 36.7; O2SAT 99
== END 2022-09-27 15:55 | disposition home or self-care (01) | DRG 603 ==
LOC: ED 17:41 → MS3 17:50
PROVIDERS: Admitting Provider Family Medicine; Emergency Provider Emergency Medicine; PCP Family Medicine; Visit Provider Internal Medicine
DX: L03.115 Cellulitis of right lower limb (principal); M32.9 Systemic lupus erythematosus, unspecified; S80.11XA Contusion of right lower leg, initial encounter; S80.12XA Contusion of left lower leg, initial encounter; Z79.899 Other long term (current) drug therapy; L03.116 Cellulitis of left lower limb; V49.9XXA Car occupant (driver) (passenger) injured in unspecified traffic accident, initial encounter; W22.10XA Striking against or struck by unspecified automobile airbag, initial encounter
CPT/HCPCS: 36415; 80048; 82550; 85025; 85652; 86140; 93005; 93970; 99284; J7040; J7050; A4216

== ENCOUNTER → 2023-01-24 | Outpatient (CLI) | payer MEDICARE, OTHER, SELFPAY ==
[2023-01-24 15:37] LABS: Absolute Lymphocyte Count 1.75 X10^3/uL (0.83-4.51); Absolute Neutrophil Count 3.1 X10^3/uL (2.0-7.7); Basophil# 0.04 X10^3/uL; Basophil% 0.7 % (0-1); Eosinophil# 0.13 X10^3/uL; Eosinophils% 2.4 % (0-5); Hematocrit 45.3 % (37-47); Hemoglobin 14.7 g/dL (12.0-15.0); Lymphocyte # 1.75 X10^3/ul (0.83-4.51); Lymphocyte % 31.6 % (19-41); Mean Corp Hgb Conc 32.5 g/dL (32-36); Mean Corpuscular Hgb 29.7 pg (27.0-32.0); Mean Corpuscular Volume 91.5 fL (81-99); Mean Platelet Vol. 10.9 fl (6.2-12.0); Monocyte# 0.47 X10^3/uL; Monocyte% 8.5 % (0-10); NRBC Flagged by Analyzer 0 % (0-5); Neutrophil # 3.13 X10^3/uL (2.7-7.7); Neutrophil % 56.6 % (47-70); Platelet Count 199 K/mm3 (150-450); RBC Distribution Width CV 13.9 % (11.6-14.6); RBC Distribution Width SD 46.6 fl (35.1-43.9); Red Blood Count 4.95 M/mm3 (4.2-5.4); White Blood Count 5.5 K/mm3 (4.4-11.0)
[2023-01-24 15:42] LABS: ALB/GLOB Ratio 1.1 RATIO (0.9-2.4); AST(SGOT) 22 U/L (15-37); Alanine Aminotransfer ALT/SGPT 25 U/L (13-56); Alkaline Phosphatase 83 U/L (45-117); Anion Gap 8 (5-15); BUN 34 mg/dL (7-18); BUN/Creat Ratio 26.4 RATIO (10-20); Calcium,Total 9.7 mg/dL (8.5-10.1); Chloride 110 mmol/L (98-107); Creatinine, Serum 1.29 mg/dL (0.55-1.02); EST Glomerular Filtration Rate 43 mL/min (>60); Est Glom Filt Rate - Afr Amer 52 mL/min (>60); Globulin 3.7 g/dL (2.2-4.2); Glucose 105 mg/dL (74-106); Protein, Total 7.7 g/dL (6.4-8.2); Sodium Level 140 mmol/L (136-145)
== END | disposition home or self-care (01) ==
LOC: MTLAB 12:36
PROVIDERS: PCP Nurse Practitioner Primary Care; Referring Provider Internal Medicine Rheumatology; Visit Provider Internal Medicine Rheumatology
DX: M32.9 Systemic lupus erythematosus, unspecified (principal); E21.3 Hyperparathyroidism, unspecified; M16.0 Bilateral primary osteoarthritis of hip; M17.0 Bilateral primary osteoarthritis of knee; I34.1 Nonrheumatic mitral (valve) prolapse; G47.33 Obstructive sleep apnea (adult) (pediatric); M85.80 Other specified disorders of bone density and structure, unspecified site
CPT/HCPCS: 36415; 80053; 85025

== ENCOUNTER 2023-07-06 19:42 | Emergency (ER) | payer MEDICARE, OTHER, SELFPAY ==
[2023-07-06 19:43] VITALS: BP 183/109; PULSE 110; RESP 18; TEMP 38; O2SAT 96; BMI 40.1
--- NOTE | 2023-07-06 19:52 | CT_ITS ---
STUDY: CT ABDOMEN AND PELVIS WITH CONTRAST REASON FOR EXAM: Female, 77 years old. abd pain. Hx of diverticulitis RADIATION DOSAGE (If Supplied By Facility): CTDIvol = ( 19.49 ) mGy, DLP = ( 1501.16 ) mGycm TECHNIQUE: Transaxial images were obtained from the dome of the diaphragm to the symphysis pubis without oral contrast. IV 100mL Isovue-370 was administered. Sagittal and coronal images were reconstructed. Individualized dose optimization techniques were used for this CT. COMPARISON: None. FINDINGS: The visualized lung bases are unremarkable. The visualized portions of the heart are within normal limits. Normal liver. Normal gallbladder and extrahepatic biliary system. Normal spleen. Normal pancreas. Normal bilateral adrenal glands. Normal right kidney. Normal left kidney. Normal visualized stomach. Normal small intestine. Diverticulosis of the colon. There is focal inflammation at the descending colon/sigmoid junction suggesting diverticulitis. Wall thickening at the distal sigmoid colon with inflammation is also noted The appendix is visualized and appears normal. Normal abdominal aorta. Normal inferior vena cava. Normal retroperitoneum. Normal urinary bladder. Normal abdominal wall. Hip prosthesis bilaterally limiting the lower pelvic images. CT/Abdomen/Pelvis W IV Cont ONLY IMPRESSION: Diverticulitis as noted. Electronically Signed: Damian Lopez DO at 20:59 EDT ,
--- NOTE | 2023-07-06 20:01 | ED.VIS.GI ---
HPI HPI - GI History of Present Illness Chief Complaint: Abd Pain Detail of Chief Complaint: Suprapubic abdominal pain for weeks to months. Informant: patient Abdominal Pain/Flank Pain Onset: Month(s) Context: Gradual Onset Timing: Intermittent Quality: Cramping, Sharp and Stabbing Location: - (Suprapubic.) Current Severity: Mild Maximum Severity: Moderate Worsened by: Nothing Relieved by: Nothing Nausea/Vomiting/Emesis GI Symptom: Negative for Nausea or Vomiting Diarrhea/Melena/Hematochezia GI Symptom: Negative for Diarrhea, Melena or Hematochezia Associated Symptoms Associated Symptoms: Negative for Dysuria, Frequency, Hematuria or Urgency Narrative Narrative: 77-year-old female denies ever having any prior abdominal surgeries other than tubal ligation many years ago. Does have a history of A-fib, prior blood clot and diagnosed with diverticulosis. States that she has had severe abdominal pain for weeks to months. It is getting worse. It is intermittent. She is moving her bowels. Denies any dysuria. Today she developed a fever. Previously she had a CAT scan a month ago she is unsure if they diagnosed her with diverticulosis or diverticulitis. But she was not treated with any antibiotics at that time. Prior similar symptoms: Yes Recent Illness/Hospitalization: No PFSH PFS Medical History AAA (abdominal aortic aneurysm) Arthritis Atrial fibrillation Breast lump DVT (deep venous thrombosis) Hypercalcemia Hyperparathyroidism Kidney disease Lupus Osteopenia Sleep apnea Vitamin D deficiency Wears glasses Wears partial dentures Home Medications hydroxychloroquine 200 mg tablet 200 mg PO BID 09/12/20 [History Last Taken 09/25/22] mirabegron 25 mg tablet,extended release 24 hr 25 mg PO QHS OVERACTIVE BLADDER 07/10/21 [History Last Taken 09/24/22] acetaminophen 650 mg tablet,extended release (Tylenol Arthritis Pain) 1,300 mg PO Q8H PRN Pain 09/25/22 [History Last Taken 09/25/22] ciprofloxacin HCl 500 mg tablet (Cipro) 500 mg PO BID 14 days #28 tabs 07/06/23 [Rx Last Taken Unknown] metronidazole 500 mg tablet 500 mg PO TID 14 days #42 tabs 07/06/23 [Rx Last Taken Unknown] Allergy/AdvReac Type Severity Reaction Status Date / Time Penicillins Allergy Intermediate rash Verified 07/06/23 19:43 Sulfa (Sulfonamide AdvReac Other Verified 07/06/23 19:43 Antibiotics) Family History Other Arthritis Cancer Myocardial infarction Surgical History History of AAA (abdominal aortic aneurysm) repair Hx of bilateral hip replacements Hx of colonoscopy Hx of total knee replacement S/P parathyroidectomy Social History Smoking Status: Never smoker alcohol intake: never substance use type: does not use ROS ROS ED ROS Narrative Abdominal pain. Review of Systems ROS Unobtainable: Denies due to encephalopathy Constitutional Constitutional ED: Reports fever(s) ENT ENT ED: Denies ear pain Cardiovascular Cardiovascular: Denies chest pain Respiratory/Chest Respiratory/Chest: Denies cough Gastrointestinal Gastrointestinal: Reports abdominal pain; Denies constipation, diarrhea, melena, nausea or vomiting Genitourinary Genitourinary ED: Denies dysuria or hematuria Musculoskeletal Musculoskeletal: Denies arthralgias Integumentary Denies abscess Neurologic Neurologic: Denies headache(s) Psychiatric Psychiatric: Denies anxiety Endocrine Endocrinology: Denies polydipsia Hematologic/Lymphatic Hematologic/Lymphatic: Denies easy bleeding Allergic/Immunologic Allergic/Immunologic ED: Denies mouth swelling EXAM Physical Exam Narrative Exam Narrative: Sending 7-year-old female vital signs are stable she does have a temperature of 100.4. She does not look septic or toxic. H EENT exam unremarkable. Moist use membranes. Lungs are clear. Heart regular rhythm rate about 105 no murmur. Chest wall nontender. Abdomen soft, nondistended normal bowel sounds no peritoneal signs. Does have reproducible suprapubic tenderness only. Both the right upper right lower quadrants are unremarkable. Moves all 4 extremities. Nontender no edema. Back nontender. She is alert and alert. With no focal motor deficits. Const Vital Signs: 07/06/23 19:43 Temperature 100.4 F H Temperature Source Temporal Pulse Rate 110 H Respiratory Rate 18 Blood Pressure 183/109 H Blood Pressure Mean 133 Pulse Ox 96 Positive well nourished and well developed; Negative for cachectic, contractures or unkempt General Appearance ED: well developed and NAD; Negative for unkempt, cachectic, contractures or pallor Nutritional Appearance: Negative for cachectic HEENT Reports moist mucous membranes; Denies dry mucous membranes normocephalic and atraumatic; Negative for trauma or tenderness Mouth ED: No dry mucous membranes Mouth: No dry mucous membranes Eyes PERRL and EOMs intact bilaterally General Eye ED: Negative for pale conjunctiva or scleral icterus Neck no lymphadenopathy, supple and no JVD General: Negative for tenderness Carotids: Negative for other Lymph Lymphatic: Negative for other Resp normal respiratory effort and clear to auscultation bilaterally Effort and Inspection: Negative for respiratory distress Auscultation: Negative for rales, rhonchi or wheezes Cardio regular rhythm, S1 normal heart sound, S2 normal heart sound and no murmurs; Negative for regular rate Rate: tachycardic Rhythm: Negative for abnormal rhythm GI non-distended and no masses; Negative for non-tender Inspection: Negative for abdominal distention Auscultation: normoactive bowel sounds Palpation: soft and tender; Negative for guarding, rigid, hernia, mass, pulsatile mass or rebound tenderness present Back/Spine no CVA tenderness General Back: Negative for CVA tenderness Cervical Spine: Negative for cervical spine tenderness Thoracic Spine / Upper Back: Negative for thoracic spinal tenderness Lumbar Spine / Lower Back: Negative for lumbar spinal tenderness Extremity full ROM General Extremety ED: Negative for edema or tenderness General Extremity: Negative for edema Neuro CN's II-XII intact bilaterally and moves all extremities Sensorium / Orientation: alert, oriented to person, oriented to place and oriented to time; Negative for orientation impaired, confused, lethargic or stuporous Motor Exam: strength 5/5 throughout Psych mental status grossly normal and thought process normal Appearance: Negative for unkempt Attitude: No agitated Mood & Affect: Negative for depressed, anxious or tearful Skin no wounds General Skin Exam: Negative for jaundice or pallor Lesions: no lesions Rashes: no rashes Trauma: Negative for abrasion MDM MDM MDM Narrative Medical decision making narrative: 77-year-old female with suprapubic abdominal pain. Differential would include diverticulitis versus UTI versus other etiologies. Clinically does not appear to be gallbladder, appendix or a bowel obstruction. CAT scan labs are pending. She does not want a thing for pain at this time nor nausea. Repeat exam patient doing well. She will be treated as an outpatient for diverticulitis with Cipro for 2 weeks and Flagyl for 2 weeks. Follow-up with your primary care provider to ensure you are improving. History & Record Review Discussion w/independent historian: Patient Lab Data Attestation: I reviewed the patient's lab results. Lab results narrative: CBC shows an elevated white count of 12.5. H&H of 14 and 47. Platelets of 220. UA is negative. No white or red cells. Rare bacteria. No nitrites. Chemistries are unremarkable. Creatinine 1.1. CAT scan consistent with acute uncomplicated sigmoid diverticulitis. No abscess. No perforation. Labs: Laboratory Results - last 24 hr 07/06/23 07/06/23 20:10 20:15 WBC 12.5 H RBC 4.86 Hgb 14.8 Hct 47.8 H MCV 98.4 MCH 30.5 MCHC 31.0 L RDW Std Deviation 43.8 RDW Coeff of Felicia 12.1 Plt Count 220 MPV 10.4 Immature Gran % (Auto) 0.300 Neut % (Auto) 76.4 H Lymph % (Auto) 13.6 L Hidalgo % (Auto) 8.0 Eos % (Auto) 1.2 Baso % (Auto) 0.5 Absolute Neuts (auto) 9.6 H Absolute Lymphs (auto) 1.70 Nucleated RBC % 0 Sodium 138 Potassium 4.2 Chloride 104 Carbon Dioxide 26.0 Anion Gap 8 BUN 23 H Creatinine 1.13 H Estim Creat Clear Calc 40.27 Est GFR (MDRD) Af Amer 60 Est GFR (MDRD) Non-Af 50 L BUN/Creatinine Ratio 20.4 H Glucose 120 H Calcium 10.0 Urine Color Yellow Urine Clarity Sl. Cloudy Urine pH 6.0 Ur Specific Bruni 1.020 Urine Protein 15 H Urine Glucose (UA) Normal Urine Ketones Negative Urine Occult Blood Negative Urine Nitrite Negative Urine Bilirubin 1 H Urine Urobilinogen Normal Ur Leukocyte Esterase Negative Urine RBC 0 SEEN Urine WBC 0-5 SEEN Ur Squamous Epith Cells 0-5 SEEN Urine Bacteria RARE Urine Mucus RARE Radiography Diagnostic Testing: Clinical Impression(s) from Imaging Studies Abdomen/Pelvis CT 07/06/23 19:52 IMPRESSION: Diverticulitis as noted. Electronically Signed: Damian Lopez DO at 20:59 EDT Reading Location ID and State: [facility] [place] Tel [phone], Service support , Discharge Plan Triage Chief Complaint: Abd Pain ED Provider: Natan Matute Dx/Rx/DC Orders Clinical Impression: Abdominal pain, Diverticulitis Instructions: ED Diverticulitis Prescriptions: New ciprofloxacin HCl [Cipro] 500 mg tablet 500 mg PO BID 14 Days Qty: 28 0RF metronidazole 500 mg tablet 500 mg PO TID 14 Days Qty: 42 0RF No Action hydroxychloroquine 200 mg tablet 200 mg PO BID mirabegron 25 mg tablet extended release 24 hr 25 mg PO QHS acetaminophen [Tylenol Arthritis Pain] 650 mg Tablet Extended Release 1,300 mg PO Q8H PRN (Reason: Pain) Primary Care Provider: Corrine Iverson NP Referrals: Corrine Iverson NP, [facility] [Primary Care Provider] - 1 Week Activity Restrictions/Additional Instructions: You have acute diverticulitis which is infection of your colon. This needs to be treated with antibiotics. To be placed on the antibiotics Cipro 1 pill twice a day for 2 weeks. Flagyl 1 pill 3 times a day for 2 weeks. Motrin and Tylenol for pain. Follow-up with your primary care provider to ensure you are improving. Disposition Disposition: Home, Self Care
[2023-07-06 20:20] LABS: Red Blood Cells-Urine 0 SEEN /hpf (0-5)
[2023-07-06 20:24] LABS: Color, Urine Yellow (Yellow); Glucose, Dipstick Normal (Normal); Ketone-Dipstick Negative (Negative); Leukocyte Esterase-Dipstick Negative /ul (Negative); Nitrite-Dipstick Negative (Negative); Occult Blood-Urine Negative /ul (Negative); Protein-Dipstick 15 mg/dl (Negative); Urine Clarity Sl. Cloudy (Clear); Urine Urobilinogen Normal (Normal)
[2023-07-06 20:24] LABS: Absolute Neutrophil Count 9.6 X10^3/uL (2.0-7.7); Basophil# 0.06 X10^3/uL; Basophil% 0.5 % (0-1); Eosinophil# 0.15 X10^3/uL; Eosinophils% 1.2 % (0-5); Hematocrit 47.8 % (37-47); Hemoglobin 14.8 g/dL (12.0-15.0); Lymphocyte % 13.6 % (19-41); Mean Corpuscular Hgb 30.5 pg (27.0-32.0); Mean Corpuscular Volume 98.4 fL (81-99); Mean Platelet Vol. 10.4 fl (6.2-12.0); NRBC Flagged by Analyzer 0 % (0-5); Neutrophil # 9.56 X10^3/uL (2.7-7.7); Neutrophil % 76.4 % (47-70); Platelet Count 220 K/mm3 (150-450); RBC Distribution Width CV 12.1 % (11.6-14.6); RBC Distribution Width SD 43.8 fl (35.1-43.9); Red Blood Count 4.86 M/mm3 (4.2-5.4); White Blood Count 12.5 K/mm3 (4.4-11.0)
[2023-07-06 20:33] LABS: Urine Bilirubin Dipstick 1 mg/dL (Negative)
[2023-07-06 20:46] LABS: Bacteria RARE /hpf (None Seen); Mucous, Urine RARE /hpf (<or=2+); Squamous Epithelial Cells - UA 0-5 SEEN /hpf (5-10); White Blood Cells 0-5 SEEN /hpf (0-5)
[2023-07-06 20:56] LABS: Anion Gap 8 (5-15); BUN 23 mg/dL (7-18); BUN/Creat Ratio 20.4 RATIO (10-20); Chloride 104 mmol/L (98-107); Creatinine, Serum 1.13 mg/dL (0.55-1.02); EST Glomerular Filtration Rate 50 mL/min (>60); Est Glom Filt Rate - Afr Amer 60 mL/min (>60); Estimated Creatinine Clearance 40.27 ml/min; Glucose 120 mg/dL (74-106); Potassium 4.2 mmol/L (3.5-5.1); Sodium Level 138 mmol/L (136-145)
[2023-07-06] MEDS: metroNIDAZOLE 500 MG Tablet PO (21:41)
[2023-07-06] MEDS: Ciprofloxacin 500 MG Tablet PO (21:41)
== END 2023-07-06 21:45 | disposition home or self-care (01) ==
PROVIDERS: Emergency Provider Emergency Medicine; PCP Nurse Practitioner Primary Care; Visit Provider Emergency Medicine
DX: K57.92 Diverticulitis of intestine, part unspecified, without perforation or abscess without bleeding (principal); I48.91 Unspecified atrial fibrillation
CPT/HCPCS: 74177; 80048; 81001; 85025; 99283; Q9967; A4216

== ENCOUNTER → 2023-07-29 | Outpatient (CLI) | payer MEDICARE, OTHER, SELFPAY ==
[2023-07-29 10:25] LABS: Absolute Lymphocyte Count 1.88 X10^3/uL (0.83-4.51); Absolute Neutrophil Count 4.2 X10^3/uL (2.0-7.7); Basophil# 0.07 X10^3/uL; Eosinophil# 0.27 X10^3/uL; Eosinophils% 3.9 % (0-5); Hematocrit 46.2 % (37-47); Hemoglobin 14.9 g/dL (12.0-15.0); Lymphocyte # 1.88 X10^3/ul (0.83-4.51); Lymphocyte % 27.2 % (19-41); Mean Corp Hgb Conc 32.3 g/dL (32-36); Mean Corpuscular Hgb 31.2 pg (27.0-32.0); Mean Corpuscular Volume 96.9 fL (81-99); Mean Platelet Vol. 10.5 fl (6.2-12.0); Monocyte# 0.46 X10^3/uL; Monocyte% 6.7 % (0-10); NRBC Flagged by Analyzer 0 % (0-5); Neutrophil # 4.21 X10^3/uL (2.7-7.7); Neutrophil % 60.9 % (47-70); Platelet Count 219 K/mm3 (150-450); RBC Distribution Width CV 12.8 % (11.6-14.6); RBC Distribution Width SD 46.2 fl (35.1-43.9); Red Blood Count 4.77 M/mm3 (4.2-5.4); White Blood Count 6.9 K/mm3 (4.4-11.0)
[2023-07-29 10:47] LABS: AST(SGOT) 21 U/L (15-37); Alanine Aminotransfer ALT/SGPT 22 U/L (13-56); Alkaline Phosphatase 89 U/L (45-117); Anion Gap 7 (5-15); BUN 23 mg/dL (7-18); BUN/Creat Ratio 22.3 RATIO (10-20); Calcium,Total 9.6 mg/dL (8.5-10.1); Chloride 108 mmol/L (98-107); Creatinine, Serum 1.03 mg/dL (0.55-1.02); EST Glomerular Filtration Rate 55 mL/min (>60); Est Glom Filt Rate - Afr Amer 67 mL/min (>60); Glucose 99 mg/dL (74-106); Potassium 4.8 mmol/L (3.5-5.1); Sodium Level 141 mmol/L (136-145)
== END | disposition home or self-care (01) ==
LOC: MTLAB 09:08
PROVIDERS: PCP Nurse Practitioner Primary Care; Referring Provider Internal Medicine Rheumatology; Visit Provider Internal Medicine Rheumatology
DX: M32.9 Systemic lupus erythematosus, unspecified (principal)
CPT/HCPCS: 36415; 80053; 85025

== ENCOUNTER → 2024-01-19 | Outpatient (CLI) | payer MEDICARE, OTHER, SELFPAY ==
[2024-01-19 10:31] LABS: Absolute Lymphocyte Count 1.91 X10^3/uL (0.83-4.51); Absolute Neutrophil Count 3.9 X10^3/uL (2.0-7.7); Basophil# 0.04 X10^3/uL; Basophil% 0.6 % (0-1); Eosinophil# 0.23 X10^3/uL; Eosinophils% 3.6 % (0-5); Hematocrit 46.6 % (37-47); Hemoglobin 14.5 g/dL (12.0-15.0); Lymphocyte # 1.91 X10^3/ul (0.83-4.51); Lymphocyte % 29.6 % (19-41); Mean Corp Hgb Conc 31.1 g/dL (32-36); Mean Corpuscular Hgb 29.6 pg (27.0-32.0); Mean Corpuscular Volume 95.1 fL (81-99); Monocyte# 0.33 X10^3/uL; Monocyte% 5.1 % (0-10); NRBC Flagged by Analyzer 0 % (0-5); Neutrophil # 3.93 X10^3/uL (2.7-7.7); Neutrophil % 60.8 % (47-70); Platelet Count 182 K/mm3 (150-450); RBC Distribution Width CV 12.7 % (11.6-14.6); RBC Distribution Width SD 45.1 fl (35.1-43.9); White Blood Count 6.5 K/mm3 (4.4-11.0)
[2024-01-19 11:05] LABS: ALB/GLOB Ratio 1.2 RATIO (0.9-2.4); AST(SGOT) 23 U/L (15-37); Alanine Aminotransfer ALT/SGPT 27 U/L (13-56); Albumin, Serum 4.2 g/dL (3.2-5.0); Alkaline Phosphatase 100 U/L (45-117); Anion Gap 7 (5-15); BUN 23 mg/dL (7-18); BUN/Creat Ratio 23.4 RATIO (10-20); Calcium,Total 9.8 mg/dL (8.5-10.1); Chloride 109 mmol/L (98-107); Creatinine, Serum 0.98 mg/dL (0.55-1.02); EST Glomerular Filtration Rate 58 mL/min (>60); Est Glom Filt Rate - Afr Amer 71 mL/min (>60); Globulin 3.6 g/dL (2.2-4.2); Glucose 96 mg/dL (74-106); Potassium 3.8 mmol/L (3.5-5.1); Protein, Total 7.8 g/dL (6.4-8.2); Sodium Level 139 mmol/L (136-145)
== END | disposition home or self-care (01) ==
PROVIDERS: PCP Nurse Practitioner Primary Care; Referring Provider Internal Medicine Rheumatology; Visit Provider Internal Medicine Rheumatology
DX: M32.9 Systemic lupus erythematosus, unspecified (principal); M16.0 Bilateral primary osteoarthritis of hip; M17.0 Bilateral primary osteoarthritis of knee
CPT/HCPCS: 36415; 80053; 85025

== ENCOUNTER → 2024-07-05 | Outpatient (CLI) | payer MEDICARE, OTHER, SELFPAY ==
[2024-07-05 12:06] LABS: Absolute Lymphocyte Count 1.94 X10^3/uL (0.83-4.51); Absolute Neutrophil Count 3.9 X10^3/uL (2.0-7.7); Basophil# 0.06 X10^3/uL; Basophil% 0.9 % (0-1); Eosinophil# 0.21 X10^3/uL; Eosinophils% 3.2 % (0-5); Hematocrit 46.7 % (37-47); Hemoglobin 14.9 g/dL (12.0-15.0); Lymphocyte # 1.94 X10^3/ul (0.83-4.51); Lymphocyte % 29.5 % (19-41); Mean Corp Hgb Conc 31.9 g/dL (32-36); Mean Corpuscular Hgb 30.2 pg (27.0-32.0); Mean Corpuscular Volume 94.7 fL (81-99); Mean Platelet Vol. 10.6 fl (6.2-12.0); Monocyte# 0.49 X10^3/uL; Monocyte% 7.4 % (0-10); NRBC Flagged by Analyzer 0 % (0-5); Neutrophil # 3.87 X10^3/uL (2.7-7.7); Neutrophil % 58.8 % (47-70); Platelet Count 200 K/mm3 (150-450); RBC Distribution Width CV 12.6 % (11.6-14.6); RBC Distribution Width SD 43.7 fl (35.1-43.9); Red Blood Count 4.93 M/mm3 (4.2-5.4); White Blood Count 6.6 K/mm3 (4.4-11.0)
[2024-07-05 12:35] LABS: ALB/GLOB Ratio 1.1 RATIO (0.9-2.4); AST(SGOT) 26 U/L (15-37); Alanine Aminotransfer ALT/SGPT 27 U/L (13-56); Alkaline Phosphatase 98 U/L (45-117); Anion Gap 8 (5-15); BUN 22 mg/dL (7-18); BUN/Creat Ratio 19.5 RATIO (10-20); Calcium,Total 9.8 mg/dL (8.5-10.1); Chloride 110 mmol/L (98-107); Creatinine, Serum 1.13 mg/dL (0.55-1.02); EST Glomerular Filtration Rate 50 mL/min (>60); Est Glom Filt Rate - Afr Amer 60 mL/min (>60); Globulin 3.8 g/dL (2.2-4.2); Glucose 96 mg/dL (74-106); Potassium 4.6 mmol/L (3.5-5.1); Protein, Total 7.8 g/dL (6.4-8.2); Sodium Level 140 mmol/L (136-145)
== END | disposition home or self-care (01) ==
PROVIDERS: PCP Nurse Practitioner Family; Referring Provider Internal Medicine Rheumatology; Visit Provider Internal Medicine Rheumatology
DX: M32.9 Systemic lupus erythematosus, unspecified (principal); M16.0 Bilateral primary osteoarthritis of hip; M17.0 Bilateral primary osteoarthritis of knee
CPT/HCPCS: 36415; 80053; 85025

== ENCOUNTER 2024-08-23 17:47 | Emergency (ER) | payer MEDICARE, OTHER, SELFPAY ==
[2024-08-23 17:47] VITALS: BP 127/81; PULSE 83; RESP 18; TEMP 36; O2SAT 99
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
--- NOTE | 2024-08-23 20:55 | EKG12_ITS ---
Test Reason : DYSRHYTHMIA Blood Pressure : / mmHG Vent. Rate : 073 BPM Atrial Rate : 073 BPM P-R Int : 182 ms QRS Dur : 096 ms QT Int : 410 ms P-R-T Axes : 053 -48 039 degrees QTc Int : 451 ms Normal sinus rhythm Left anterior fascicular block Minimal voltage criteria for LVH, may be normal variant ( [place] product ) Abnormal ECG Confirmed by Johnny Brasher ([id number]), offline editor MALATHI WADE ([id number]) on 08/24/2024 10:14:57 AM Referred By: Confirmed By:Johnny Brasher
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
[2024-08-23] MEDS: 0.9% Normal Saline (1000mL) 1,000 ML 999 ML IV (21:08)
[2024-08-23 21:12] VITALS: BP 130/93; PULSE 72; RESP 18; O2SAT 96
[2024-08-23 21:23] LABS: Mucous, Urine 0 SEEN /hpf (<or=2+); Red Blood Cells-Urine 0 SEEN /hpf (0-5); Squamous Epithelial Cells - UA 0 SEEN /hpf (5-10); White Blood Cells 0 SEEN /hpf (0-5)
[2024-08-23 21:27] LABS: Absolute Lymphocyte Count 1.48 X10^3/uL (0.83-4.51); Absolute Neutrophil Count 10.6 X10^3/uL (2.0-7.7); Basophil# 0.06 X10^3/uL; Basophil% 0.5 % (0-1); Eosinophil# 0.05 X10^3/uL; Eosinophils% 0.4 % (0-5); Hematocrit 44.5 % (37-47); Hemoglobin 13.8 g/dL (12.0-15.0); Lymphocyte # 1.48 X10^3/ul (0.83-4.51); Lymphocyte % 11.4 % (19-41); Mean Corpuscular Hgb 30.1 pg (27.0-32.0); Mean Corpuscular Volume 96.9 fL (81-99); Mean Platelet Vol. 11.2 fl (6.2-12.0); Monocyte% 5.4 % (0-10); NRBC Flagged by Analyzer 0 % (0-5); Neutrophil # 10.57 X10^3/uL (2.7-7.7); Neutrophil % 81.6 % (47-70); Platelet Count 182 K/mm3 (150-450); RBC Distribution Width CV 12.9 % (11.6-14.6); Red Blood Count 4.59 M/mm3 (4.2-5.4)
[2024-08-23 21:33] LABS: Color, Urine Yellow (Yellow); Glucose, Dipstick Normal (Normal); Ketone-Dipstick 5 mg/dl (Negative); Leukocyte Esterase-Dipstick Negative /ul (Negative); Nitrite-Dipstick Negative (Negative); Occult Blood-Urine Negative /ul (Negative); Protein-Dipstick 30 mg/dl (Negative); Urine Clarity Clear (Clear); Urine Urobilinogen 1 mg/dl (Normal)
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
[2024-08-23 21:48] LABS: International Normalized Ratio 1.3
[2024-08-23 21:49] LABS: Partial Thromboplast Time 22.2 Seconds (24.1-36.2)
[2024-08-23 22:11] LABS: Urine Bilirubin Dipstick 1 mg/dL (Negative)
[2024-08-23 22:16] LABS: Bacteria RARE /hpf (None Seen)
[2024-08-23 22:32] LABS: AST(SGOT) 35 U/L (15-37); Alanine Aminotransfer ALT/SGPT 26 U/L (13-56); Alkaline Phosphatase 91 U/L (45-117); Anion Gap 8 (5-15); BUN 36 mg/dL (7-18); BUN/Creat Ratio 28.3 RATIO (10-20); Bilirubin, Direct 0.06 mg/dL (0.00-0.30); Calcium,Total 9.6 mg/dL (8.5-10.1); Chloride 109 mmol/L (98-107); Creatinine, Serum 1.27 mg/dL (0.55-1.02); EST Glomerular Filtration Rate 43 mL/min (>60); Est Glom Filt Rate - Afr Amer 53 mL/min (>60); Globulin 3.5 g/dL (2.2-4.2); Glucose 141 mg/dL (74-106); Protein, Total 7.5 g/dL (6.4-8.2); Sodium Level 141 mmol/L (136-145)
[2024-08-23 22:39] LABS: Troponin-I HS 12 pg/mL (3.0-54.0)
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
[2024-08-23 23:00] VITALS: BP 141/86; PULSE 78; RESP 18; O2SAT 98
[2024-08-23 23:15] VITALS: BP 141/86; PULSE 72; RESP 18; TEMP 36.9; O2SAT 97
== END 2024-08-23 23:23 | disposition home or self-care (01) ==
PROVIDERS: Emergency Provider Emergency Medicine; PCP Nurse Practitioner Family; Visit Provider Emergency Medicine
DX: S80.11XA Contusion of right lower leg, initial encounter (principal); J84.9 Interstitial pulmonary disease, unspecified; I48.91 Unspecified atrial fibrillation; J90 Pleural effusion, not elsewhere classified; J98.11 Atelectasis; S80.01XA Contusion of right knee, initial encounter; S80.12XA Contusion of left lower leg, initial encounter; V89.2XXA Person injured in unspecified motor-vehicle accident, traffic, initial encounter; I71.40 Abdominal aortic aneurysm, without rupture, unspecified; E21.3 Hyperparathyroidism, unspecified; N18.9 Chronic kidney disease, unspecified; G47.33 Obstructive sleep apnea (adult) (pediatric); M19.90 Unspecified osteoarthritis, unspecified site; M47.812 Spondylosis without myelopathy or radiculopathy, cervical region; K57.30 Diverticulosis of large intestine without perforation or abscess without bleeding; Z88.0 Allergy status to penicillin; Z88.2 Allergy status to sulfonamides; Z86.718 Personal history of other venous thrombosis and embolism; Z79.899 Other long term (current) drug therapy; Z96.643 Presence of artificial hip joint, bilateral; Z96.651 Presence of right artificial knee joint
CPT/HCPCS: 70450; 71260; 72125; 73562; 73590; 74177; 80048; 80076; 81001; 84484; 85025; 85610; 85730; 93005; 96360; 96361; 99283; J7030; Q9967; A4216

== ENCOUNTER 2024-08-27 00:53 | Observation (INO) | payer OTHER, MEDICARE, SELFPAY ==
[2024-08-27] VITALS (26 sets, daily range): BP systolic 122–159; BP diastolic 66–125; PULSE 66–100; RESP 14–32; TEMP 36.4–36.9; O2SAT 86–98; BMI 42.4; BMI 42.1
--- NOTE | 2024-08-27 01:07 | EKG12_ITS ---
Test Reason : CP Blood Pressure : / mmHG Vent. Rate : 083 BPM Atrial Rate : 083 BPM P-R Int : 180 ms QRS Dur : 102 ms QT Int : 388 ms P-R-T Axes : 035 -41 045 degrees QTc Int : 455 ms Normal sinus rhythm Left axis deviation Minimal voltage criteria for LVH, may be normal variant ( Endy product ) Abnormal ECG Confirmed by LUCERO REYEZ, DILAN ([id number]), production editor MALATHI WADE ([id number]) on 08/30/2024 7:29:38 AM Referred By: Confirmed By:DILAN BARKER MD
--- NOTE | 2024-08-27 01:07 | RAD_ITS ---
INDICATION: CP EXAMINATION/TECHNIQUE: X-RAY - XR Chest 2 Views COMPARISON: No relevant prior comparison study available FINDINGS: LINES/DEVICES: None. LUNGS: Small bilateral pleural effusions. Subsegmental atelectasis in the lung bases. MEDIASTINUM AND CARDIOVASCULAR STRUCTURES: Cardiac silhouette not enlarged. Central airways and mediastinal contour are unremarkable. BONES AND SOFT TISSUES: Unremarkable. RAD/Chest PA and Lateral IMPRESSION: Small bilateral pleural effusions. Subsegmental atelectasis in the lung bases. Electronically Signed: Margarette Zaman MD at 2:08 EDT ,
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
[2024-08-27] MEDS: Ondansetron 4 MG/2 ML Vial IV (01:26)
[2024-08-27] MEDS: 0.9% Normal Saline (1000mL) 1,000 ML 999 ML IV (01:26)
[2024-08-27] MEDS: Morphine 4 MG/ML Syringe IV ×2 (01:26→04:04)
[2024-08-27 01:35] LABS: Absolute Lymphocyte Count 2.45 X10^3/uL (0.83-4.51); Absolute Neutrophil Count 4.8 X10^3/uL (2.0-7.7); Basophil# 0.04 X10^3/uL; Basophil% 0.5 % (0-1); Eosinophil# 0.34 X10^3/uL; Eosinophils% 4.1 % (0-5); Hematocrit 36.7 % (37-47); Hemoglobin 11.5 g/dL (12.0-15.0); Lymphocyte # 2.45 X10^3/ul (0.83-4.51); Lymphocyte % 29.4 % (19-41); Mean Corp Hgb Conc 31.3 g/dL (32-36); Mean Corpuscular Hgb 30.3 pg (27.0-32.0); Mean Corpuscular Volume 96.6 fL (81-99); Mean Platelet Vol. 10.9 fl (6.2-12.0); Monocyte# 0.65 X10^3/uL; Monocyte% 7.8 % (0-10); NRBC Flagged by Analyzer 0 % (0-5); Neutrophil # 4.83 X10^3/uL (2.7-7.7); Neutrophil % 57.8 % (47-70); Platelet Count 180 K/mm3 (150-450); RBC Distribution Width CV 13.2 % (11.6-14.6); RBC Distribution Width SD 46.8 fl (35.1-43.9); White Blood Count 8.3 K/mm3 (4.4-11.0)
[2024-08-27 01:55] LABS: BNP,B-Type NATRIURETIC PEPTIDE 76.8 pg/mL (0-100)
[2024-08-27 03:27] LABS: Reflex Troponin-HS? (from REC) Y
[2024-08-27 04:02] LABS: Troponin-I HS 10 pg/mL (3.0-54.0)
--- NOTE | 2024-08-27 04:44 | CT_ITS ---
STUDY: CTA CHEST REASON FOR EXAM: Female, 78 years old. LEFT SIDED PAIN RADIATION DOSAGE (If Supplied By Facility): CTDIvol = ( 26.17 ) mGy, DLP = ( 1950.11 ) mGycm TECHNIQUE: The examination was performed with the intravenous administration of IV 100mL Isovue-300. Post-processing of the angiographic images was performed, with multiplanar reformation and 3D reconstruction. The protocol utilizes one or more of the following dose reduction techniques: automated exposure control, adjustment of mA and/or kV according to patient size,and/or use of iterative reconstruction technique. COMPARISON: No relevant prior comparison study available FINDINGS: Normal enhancement of the main pulmonary artery and right and left pulmonary arteries. Normal enhancement of the bilateral peripheral pulmonary arteries. There is no demonstrated pulmonary embolism. Aneurysmal dilatation of the ascending aorta measures 4 cm. There is no demonstrated aortic dissection. Mild cardiomegaly. Normal mediastinum. Pulmonary vascular congestion. Normal visualized trachea and bronchi. Small bilateral pleural effusions more prominent on the right. Subsegmental atelectasis in the lung bases. The Normal chest wall structures. Normal osseous structures. Normal visualized upper abdomen. CT/CTA Chest W/WO Contrast IMPRESSION: CHF. No demonstrated pulmonary embolism or arterial dissection. Electronically Signed: Margarette Zaman MD at 6:06 EDT ,
--- NOTE | 2024-08-27 04:44 | CT_ITS ---
STUDY: CT ABDOMEN AND PELVIS WITH CONTRAST - URINARY TRACT REASON FOR EXAM: Female, 78 years old. LEFT SIDED PAIN RADIATION DOSAGE (If Supplied By Facility): CTDIvol = ( 26.17 ) mGy, DLP = ( 1950.11 ) mGycm TECHNIQUE: IV 100mL Isovue-300 was administered. Transaxial images were obtained from the dome of the diaphragm to the symphysis pubis in the arterial, nephrographic and excretory phases. Multiplanar coronal and sagittal images were reformatted. The protocol utilizes one or more of the following dose reduction techniques: automated exposure control, adjustment of mA and/or kV according to patient size,and/or use of iterative reconstruction technique. COMPARISON: No relevant prior comparison study available FINDINGS: Small bilateral pleural effusions more prominent on the right. Normal liver. Normal gallbladder and extrahepatic biliary system. Normal spleen. Normal pancreas. Normal bilateral adrenal glands. Normal visualized stomach. Normal small intestine. Large amount of stool in the colon. Sigmoid diverticulosis. There is no evidence of diverticulitis. The appendix is visualized and appears normal. Normal abdominal aorta. No retroperitoneal adenopathy. Normal right kidney. Normal left kidney. Normal urinary bladder. Normal abdominal wall. Normal osseous structures. CT/Abdomen/Pelvis W IV Cont ONLY IMPRESSION: Large amount of stool in the colon. Sigmoid diverticulosis. There is no evidence of diverticulitis. Electronically Signed: Margarette Zaman MD at 6:15 EDT ,
--- NOTE | 2024-08-27 06:55 | NURSING ---
DR INGRID LIMA
--- NOTE | 2024-08-27 07:58 | VDLE_ITS ---
Reason For Study: Swelling BLE RIGHT LEFT GSV is normal. GSV is normal. CFV is compressible, spontaneous, phasic, CFV is compressible, spontaneous, phasic, competent and demonstrates normal competent, and demonstrates normal augmentation. augmentation. FV is compressible, spontaneous, phasic, FV is compressible, spontaneous, phasic, competent and demonstrates normal competent and demonstrates normal augmentation. augmentation. POP V is compressible, spontaneous, phasic, POP V is compressible, spontaneous, phasic, competent and demonstrates normal competent and demonstrates normal augmentation. augmentation. T/P Trunk is compressible. T/P Trunk is compressible. PTV is compressible. PTV is compressible. RT PerV is compressible. LT PerV is compressible. Procedure This is a venous duplex using B-mode, color flow and spectral Doppler. Exam performed portable in patient room. The study was technically difficult. The study was technically limited. Patient unable to tolerate compressions in the Rt calf, very difficult to evaluate calf veins Technically difficult due to patient body habitus. A preliminary report was called and/or faxed to Marissa TRIPLETT. VL/Venous Duplex US - Rick Extrem Interpretation Summary Deep veins of the lower extremities are bilaterally patent and compressible seg mentally. There is no evidence of deep vein thrombosis on either side. Valvular competence appears in tact within the proximal deep venous systems bilaterally. The great saphenous veins appear bila terally patent and compressible segmentally. Ordering Physician: Geri Keane Referring Physician: Jean Pierre Randolph Performed By: Juana Haro, ANNABEL, RVT
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
[2024-08-27] MEDS: oxyCODONE 5 MG Tablet PO (09:05)
[2024-08-27] MEDS: Gabapentin 100 MG Capsule PO ×3 (09:05→17:41)
[2024-08-27] MEDS: Furosemide 20 MG/2 ML VIAL IV (09:06)
[2024-08-27] MEDS: 0.9% Saline Lock 10 ML Syringe IV ×2 (09:08→20:50)
[2024-08-27 11:07] LABS: Anion Gap 7 (5-15); BUN 11 mg/dL (7-18); BUN/Creat Ratio 11.6 RATIO (10-20); Calcium,Total 9.3 mg/dL (8.5-10.1); Chloride 104 mmol/L (98-107); Creatinine, Serum 0.95 mg/dL (0.55-1.02); EST Glomerular Filtration Rate 61 mL/min (>60); Est Glom Filt Rate - Afr Amer 74 mL/min (>60); Estimated Creatinine Clearance 63.72 ml/min; Glucose 99 mg/dL (74-106); Potassium 4.4 mmol/L (3.5-5.1); Reflex Troponin-HS? (from REC) Y; Sodium Level 139 mmol/L (136-145); Troponin-I HS (w/2H Reflex) 9 pg/mL (3.0-54.0)
[2024-08-27] MEDS: Senna/Docusate Sodium 1 Tablet 2 TABLET PO ×2 (11:48→20:52)
[2024-08-27] MEDS: Enoxaparin 40 MG/0.4 ML Syringe SC (11:48)
[2024-08-27] MEDS: Pantoprazole Sodium 40 MG Tablet PO (11:48)
[2024-08-27] MEDS: Hydroxychloroquine 200 MG Tablet PO ×2 (11:48→20:50)
[2024-08-27] MEDS: Lidocaine 5% Patch 1 PATCH TOPICAL (11:48)
[2024-08-27 12:28] LABS: Troponin-I HS 12 pg/mL (3.0-54.0)
[2024-08-27] MEDS: Acetaminophen 500 MG Tablet 1000 MG PO ×2 (14:57→20:52)
[2024-08-27] MEDS: tiZANidine HCl 2 MG Tablet 4 MG PO ×2 (14:58→20:51)
--- NOTE | 2024-08-27 16:03 | CASEMGMT ---
Met with patient to complete KAYE form. KAYE form explained to patient who voiced understanding and signed form. Original form placed in pt?s chart and copy provided to patient. Sabrina Maharaj, Discharge Planning Asst
[2024-08-27] MEDS: Ketorolac 15 MG/ML Vial IV (20:46)
[2024-08-28 03:32] VITALS: BP 158/97; PULSE 66; RESP 18; TEMP 35.8; O2SAT 96
[2024-08-28] MEDS: Ketorolac 15 MG/ML Vial IV (03:42)
[2024-08-28] MEDS: Acetaminophen 500 MG Tablet 1000 MG PO ×2 (05:26→14:44)
[2024-08-28] MEDS: tiZANidine HCl 2 MG Tablet 4 MG PO ×2 (05:26→14:44)
[2024-08-28 07:03] LABS: Anion Gap 6 (5-15); BUN 27 mg/dL (7-18); BUN/Creat Ratio 23.9 RATIO (10-20); Calcium,Total 8.7 mg/dL (8.5-10.1); Chloride 108 mmol/L (98-107); Creatinine, Serum 1.13 mg/dL (0.55-1.02); EST Glomerular Filtration Rate 50 mL/min (>60); Est Glom Filt Rate - Afr Amer 60 mL/min (>60); Estimated Creatinine Clearance 53.57 ml/min; Glucose 157 mg/dL (74-106); Potassium 3.8 mmol/L (3.5-5.1); Sodium Level 137 mmol/L (136-145)
[2024-08-28 08:15] VITALS: BP 89/64; PULSE 95; RESP 18; TEMP 36.3; O2SAT 95
[2024-08-28] MEDS: Senna/Docusate Sodium 1 Tablet 2 TABLET PO (08:32)
[2024-08-28] MEDS: Hydroxychloroquine 200 MG Tablet PO (08:32)
[2024-08-28] MEDS: Pantoprazole Sodium 40 MG Tablet PO (08:32)
[2024-08-28] MEDS: Gabapentin 100 MG Capsule PO ×3 (08:32→16:07)
[2024-08-28] MEDS: Enoxaparin 40 MG/0.4 ML Syringe SC (08:33)
[2024-08-28] MEDS: Lidocaine 5% Patch 1 PATCH TOPICAL (08:33)
[2024-08-28 08:44] VITALS: BP 128/74
[2024-08-28] MEDS: oxyCODONE 5 MG Tablet PO ×2 (12:07→16:07)
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
[2024-08-28 14:00] VITALS: BP 132/74; PULSE 69; RESP 18; TEMP 36.6; O2SAT 98
== END 2024-08-28 17:16 | disposition home or self-care (01) ==
LOC: ED 07:04 → MS3 07:33
PROVIDERS: Admitting Provider Internal Medicine; Emergency Provider Emergency Medicine; PCP Nurse Practitioner Family; Visit Provider Internal Medicine
DX: R07.81 Pleurodynia (principal); I48.91 Unspecified atrial fibrillation; M32.9 Systemic lupus erythematosus, unspecified; E66.01 Morbid (severe) obesity due to excess calories; Z68.41 Body mass index [BMI] 40.0-44.9, adult; N18.31 Chronic kidney disease, stage 3a; G47.33 Obstructive sleep apnea (adult) (pediatric); Z86.718 Personal history of other venous thrombosis and embolism; D64.9 Anemia, unspecified; R73.9 Hyperglycemia, unspecified; J98.11 Atelectasis; R60.0 Localized edema; Z79.899 Other long term (current) drug therapy; I71.40 Abdominal aortic aneurysm, without rupture, unspecified
CPT/HCPCS: 36415; 71046; 71275; 72146; 74177; 80048; 83880; 84484; 85025; 93005; 93970; 94668; 96372; 96374; 96375; 96376; 99221; 99285; J7030; Q9967; A4216; G0378; J1940; J2405

== ENCOUNTER → 2025-01-03 | Outpatient (CLI) | payer MEDICARE, OTHER, SELFPAY ==
[2025-01-03 15:55] LABS: Absolute Lymphocyte Count 1.84 X10^3/uL (0.83-4.51); Absolute Neutrophil Count 3.8 X10^3/uL (2.0-7.7); Basophil# 0.05 X10^3/uL; Basophil% 0.8 % (0-1); Eosinophils% 3.1 % (0-5); Hematocrit 46.3 % (37-47); Hemoglobin 14.6 g/dL (12.0-15.0); Lymphocyte # 1.84 X10^3/ul (0.83-4.51); Lymphocyte % 28.8 % (19-41); Mean Corp Hgb Conc 31.5 g/dL (32-36); Mean Corpuscular Volume 95.3 fL (81-99); Mean Platelet Vol. 10.9 fl (6.2-12.0); Monocyte# 0.48 X10^3/uL; Monocyte% 7.5 % (0-10); NRBC Flagged by Analyzer 0 % (0-5); Neutrophil # 3.79 X10^3/uL (2.7-7.7); Neutrophil % 59.5 % (47-70); Platelet Count 233 K/mm3 (150-450); RBC Distribution Width CV 13.1 % (11.6-14.6); RBC Distribution Width SD 45.8 fl (35.1-43.9); Red Blood Count 4.86 M/mm3 (4.2-5.4); White Blood Count 6.4 K/mm3 (4.4-11.0)
[2025-01-03 16:16] LABS: AST(SGOT) 23 U/L (15-37); Alanine Aminotransfer ALT/SGPT 23 U/L (13-56); Alkaline Phosphatase 128 U/L (45-117); Anion Gap 7 (5-15); BUN 26 mg/dL (7-18); BUN/Creat Ratio 22.4 RATIO (10-20); Chloride 108 mmol/L (98-107); Creatinine, Serum 1.16 mg/dL (0.55-1.02); EST Glomerular Filtration Rate 48 mL/min (>60); Est Glom Filt Rate - Afr Amer 58 mL/min (>60); Globulin 3.9 g/dL (2.2-4.2); Glucose 99 mg/dL (74-106); Potassium 4.6 mmol/L (3.5-5.1); Protein, Total 7.9 g/dL (6.4-8.2); Sodium Level 140 mmol/L (136-145)
== END | disposition home or self-care (01) ==
PROVIDERS: PCP Nurse Practitioner Family; Referring Provider Internal Medicine Rheumatology; Visit Provider Internal Medicine Rheumatology
DX: M32.9 Systemic lupus erythematosus, unspecified (principal); M16.0 Bilateral primary osteoarthritis of hip; M17.0 Bilateral primary osteoarthritis of knee; Z96.643 Presence of artificial hip joint, bilateral; Z96.651 Presence of right artificial knee joint
CPT/HCPCS: 36415; 80053; 85025

== ENCOUNTER 2025-02-28 15:47 | Emergency (ER) | payer MEDICARE, OTHER, SELFPAY ==
[2025-02-28] VITALS (8 sets, daily range): BP systolic 104–174; BP diastolic 80–103; PULSE 63–93; RESP 13–15; TEMP 36.6; O2SAT 93–100; BMI 40.7
--- NOTE | 2025-02-28 16:08 | ED.VIS.CHEST ---
HPI History of Present Illness Chief Complaint: Chest Pain Informant: patient Onset/Context/Timing Onset: Today Activity at onset: sudden Timing: Continuous Quality: Positive for Aching and Tightness Location: Substernal and - (Lower chest) Worsened By: Nothing Relieved By: Nothing Associated Symptoms: Positive for Nausea; Negative for Vomiting, Diaphoresis, Dyspnea, Cough, Fever, Lightheadedness, Acid Reflux or Palpitations Narrative Narrative: Patient presents with chest pain that began today. Patient states she saw her primary care physician for diverticulitis. Patient states that after she left her primary care physician's office, she went to the pharmacy to peanut picker her prescriptions. Patient states that while she was there, she developed pain in her lower chest that radiated up into her throat. Patient describes it as aching and tightness. Patient states nothing makes it better and nothing makes it worse. Patient admits to some nausea but denies any vomiting. Patient denies any shortness of breath or cough. Patient denies any diaphoresis or lightheadedness. CVD Risk Factors: Positive for Family History 1' </=55; Negative for Hypertension, Diabetes, Hypercholesterolemia or Smoking PE Risk Factors: Positive for Prior DVT or PE; Negative for Recent Travel/Surgery, Recent Immobilization, Cancer or OCP + Smoking + >/=35 PFSH PFSH Medical History Kidney disease AAA (abdominal aortic aneurysm) DVT (deep venous thrombosis) Wears partial dentures Wears glasses Sleep apnea Osteopenia Vitamin D deficiency Hypercalcemia Hyperparathyroidism Lupus Breast lump Atrial fibrillation Arthritis Home Medications ?Medication ?Instructions ?Recorded ?Last Taken ?Type hydroxychloroquine 200 mg tablet 200 mg PO BID 09/12/20 09/25/22 History mirabegron 25 mg tablet,extended 25 mg PO QHS OVERACTIVE BLADDER 07/10/21 09/24/22 History release 24 hr acetaminophen 650 mg 1,300 mg PO Q8H PRN Pain 09/25/22 09/25/22 History tablet,extended release (Tylenol Arthritis Pain) Held on 08/28/24. Instructions: For 2 weeks metronidazole 500 mg tablet 500 mg PO TID 14 days #42 tabs 07/06/23 Unknown Rx cyclobenzaprine 5 mg tablet 5 mg PO BID PRN muscle spasm 5 08/23/24 Unknown Rx days #10 tabs tizanidine 4 mg tablet 4 mg PO TID 08/27/24 Unknown History acetaminophen 500 mg tablet 1,000 mg (2 x 500 mg) PO Q8 #1 TAB 08/28/24 Unknown Rx gabapentin 100 mg capsule 100 mg PO TIDCM #42 caps 08/28/24 Unknown Rx lidocaine 5 % topical patch 1 patch topical DAILY #15 ea 08/28/24 Unknown Rx oxycodone 5 mg tablet 5 mg PO Q6H 1 week #28 tabs 08/28/24 Unknown Rx sennosides 8.6 mg-docusate sodium 2 tab PO BID #28 tabs 08/28/24 Unknown Rx 50 mg tablet (Stimulant Laxative Plus) Allergy/AdvReac Type Severity Reaction Status Date / Time Penicillins Allergy Intermediate rash Verified 02/28/25 15:47 Sulfa (Sulfonamide AdvReac Other Verified 02/28/25 15:47 Antibiotics) Family History Other Arthritis Cancer Myocardial infarction Surgical History History of AAA (abdominal aortic aneurysm) repair S/P parathyroidectomy Hx of colonoscopy Hx of bilateral hip replacements Hx of total knee replacement Social History Smoking Status: Never smoker alcohol intake: never substance use type: does not use ROS ROS ED Constitutional Constitutional ED: Denies chills or fever(s) Eyes Eyes: Denies blurry vision or change in vision ENT ENT ED: Denies rhinorrhea or sore throat Cardiovascular Cardiovascular: Reports chest pain; Denies palpitations Respiratory/Chest Respiratory/Chest: Denies cough or dyspnea Gastrointestinal Gastrointestinal: Reports nausea; Denies vomiting Genitourinary Genitourinary ED: Denies dysuria or hematuria Musculoskeletal Musculoskeletal: Reports neck pain; Denies back pain Integumentary Denies abscess or rash Neurologic Neurologic: Denies headache(s) or weakness Allergic/Immunologic Allergic/Immunologic ED: Denies mouth swelling or urticaria EXAM Physical Exam Const Vital Signs: 02/28/25 15:47 02/28/25 15:59 02/28/25 16:34 Temperature 98 F Temperature Source Temporal Pulse Rate 81 Respiratory Rate 15 Respiratory Effort Normal Non-Labored Blood Pressure 174/103 H Blood Pressure Mean 126 Pulse Ox 100 Oxygen Delivery Method Room Air Room Air 02/28/25 16:37 02/28/25 16:39 02/28/25 16:55 Temperature Temperature Source Pulse Rate 75 93 76 Respiratory Rate 13 Respiratory Effort Blood Pressure 111/80 111/80 107/82 H Blood Pressure Mean 90 90 Pulse Ox 94 95 Oxygen Delivery Method Room Air Room Air 02/28/25 18:00 02/28/25 19:09 Temperature Temperature Source Pulse Rate 63 66 Respiratory Rate 15 Respiratory Effort Blood Pressure 104/80 142/97 H Blood Pressure Mean 88 112 Pulse Ox 93 Oxygen Delivery Method Room Air Positive well nourished and well developed Constitutional Narrative: BMI is 40.8 General Appearance ED: well developed and NAD HEENT Reports moist mucous membranes normocephalic and atraumatic Neck supple and no JVD Resp normal respiratory effort and clear to auscultation bilaterally Cardio regular rate and regular rhythm GI soft to palpation, non-tender and non-distended Neuro oriented x3, CN's II-XII intact bilaterally and no sensory deficits noted Sensorium / Orientation: awake and alert Motor Exam: strength 5/5 throughout Psych mental status grossly normal Heart Score History: Slightly/Non-Suspicious ECG: Nonspecific Repolarization Age: >/= 65 years Risk Factors: 1 or 2 Risk Factors Troponin: </= Normal Limit Score: 4 MDM MDM MDM Narrative Medical decision making narrative: Differential diagnosis includes cardiac dysrhythmia, cardiac ischemia, electrolyte abnormality, pneumonia, bronchitis, pulmonary embolism, gastroesophageal reflux disease, pancreatitis, and anxiety. EKG will be obtained to assess for cardiac dysrhythmia and cardiac ischemia. Chest x-ray will be obtained to assess for pneumonia and bronchitis. CBC will be obtained to assess for leukocytosis and anemia. Basic metabolic profile will be obtained to assess for electrolyte abnormality and renal function. High-sensitivity troponin will be obtained to assess for cardiac ischemia. 2-hour repeat high-sensitivity troponin will be obtained to assess for ongoing cardiac ischemia. D-dimer will be obtained to assess for pulmonary embolism. Lab Data Attestation: I reviewed the patient's lab results. Lab results narrative: CBC was reviewed and was within normal limits. Basic metabolic profile was reviewed and was essentially within normal limits. BUN was mildly elevated at 26. Creatinine was normal at 1.16. High-sensitivity troponin was reviewed and was normal at 12. 2-hour repeat high-sensitivity troponin was reviewed reviewed and was normal at 14. D-dimer was reviewed and was elevated at 0.82. Labs: Laboratory Results - last 24 hr 02/28/25 02/28/25 16:10 18:30 WBC 7.4 RBC 4.82 Hgb 15.0 Hct 44.9 MCV 93.2 MCH 31.1 MCHC 33.4 RDW Std Deviation 44.5 H RDW Coeff of Felicia 13.0 Plt Count 204 MPV 10.3 Immature Gran % (Auto) 0.300 Neut % (Auto) 57.1 Lymph % (Auto) 32.4 [place] % (Auto) 7.4 Eos % (Auto) 2.3 Baso % (Auto) 0.5 Absolute Neuts (auto) 4.3 Absolute Lymphs (auto) 2.41 Nucleated RBC % 0 D-Dimer Quant (PE/DVT) 0.82 H* Sodium 139 Potassium 4.3 Chloride 103 Carbon Dioxide 21.4 Anion Gap 14 BUN 26 H Creatinine 1.16 Estim Creat Clear Calc 50.43 Est GFR (MDRD) Non-Af 49 L BUN/Creatinine Ratio 22.6 H Glucose 108 H Calcium 10.3 Troponin T High Sens 12 Troponin T Hi Sens 2 Hr 14 Radiography Chest X-Ray - ED: 1 View, Read by ED Physician, Read by Radiologist and No Acute Disease CTA PE Study: No Evidence of PE and No Evidence of Dissection Diagnostic Testing: Clinical Impression(s) from Imaging Studies Chest X-Ray 02/28/25 16:36 IMPRESSION: Negative Chest. Reading Location: [facility] Chest CTA 02/28/25 17:46 IMPRESSION: 1. No evidence of acute pulmonary embolism. 2. Severe coronary artery calcifications. Reading Location: [facility] Portable 1 view chest x-ray was obtained. On my independent interpretation, lung ibanez are clear. There is normal cardiac silhouette. Bony thorax is normal. There is no acute process noted. Radiologist also interpreted the x-ray and agrees. Because of the elevated D-dimer, CTA of the chest was obtained. There is no evidence of pulmonary embolism. There is no evidence of aortic dissection. There are coronary artery calcifications noted. This was interpreted by the radiologist and was also independently reviewed by myself. EKG Initial EKG: Attestation: I personally reviewed and interpreted this EKG as follows: Interpretation: Sinus Rhythm (71) and LAFB Comments: EKG was obtained. On my independent interpretation, it showed a normal sinus rhythm with a rate of 71. CO interval, QRS interval, and QTc intervals were all normal. There is left axis deviation of -49. There is a left anterior fascicular block pattern. There is moderate voltage criteria for left ventricular hypertrophy. There are no acute ST or T wave changes. Prior EKG tracings: available for review Prior: Unchanged (08/27/2024) Treatment and Re-Evaluation :: Patient was given aspirin and nitroglycerin. Patient was feeling better on reevaluation. Patient was advised of her findings. Patient has a HEART score of 4. Patient was instructed to follow-up with her primary care physician in 5 to 7 days. Patient wants to go home. Patient understood and was agreeable with the plan. All questions were answered. Discharge Plan Triage Chief Complaint: Chest Pain ED Provider: Vj Downs Dx/Rx/DC Orders Clinical Impression: Chest pain of uncertain etiology, Elevated blood pressure reading Instructions: ED Chest Pain, Uncertain Cause Prescriptions: No Action hydroxychloroquine 200 mg tablet 200 mg PO BID mirabegron 25 mg tablet extended release 24 hr 25 mg PO QHS acetaminophen [Tylenol Arthritis Pain] 650 mg Tablet Extended Release 1,300 mg PO Q8H PRN (Reason: Pain) metronidazole 500 mg tablet 500 mg PO TID 14 Days Qty: 42 0RF cyclobenzaprine 5 mg tablet 5 mg PO BID PRN (Reason: muscle spasm) 5 Days Qty: 10 0RF tizanidine 4 mg tablet 4 mg PO TID acetaminophen 500 mg Tablet 1,000 mg PO Q8 Qty: 1 0RF Rx Instructions: Take this for 2 weeks then go back to your as needed Tylenol gabapentin 100 mg Capsule 100 mg PO TIDCM Qty: 42 0RF lidocaine 5 % Adhesive Patch,Medicated 1 patch topical DAILY Qty: 15 0RF Protocol: *Topical Application Instructions APPLICATION INSTRUCTIONS: affected area oxycodone 5 mg Tablet 5 mg PO Q6H 7 Days Qty: 28 0RF sennosides-docusate sodium [Stimulant Laxative Plus] 8.6-50 mg Tablet 2 tab PO BID Qty: 28 0RF Primary Care Provider: Jean Pierre Randolph NP Referrals: Jean Pierre Randolph VICE PRESIDENT, VICE PRESIDENT-C [Primary Care Provider] - 5-7 Days Print Language: Venezuelan Disposition Disposition: Home, Self Care
--- NOTE | 2025-02-28 16:29 | EKG12_ITS ---
Test Reason : CP Blood Pressure : */* mmHG Vent. Rate : 71 BPM Atrial Rate : 71 BPM P-R Int : 182 ms QRS Dur : 100 ms QT Int : 384 ms P-R-T Axes : 36 -49 45 degrees QTcB Int : 417 ms Normal sinus rhythm with sinus arrhythmia Left anterior fascicular block Moderate voltage criteria for LVH, may be normal variant ( R in aVL , Endy product ) Abnormal ECG When compared with ECG of 27-Aug-2024 00:58, No significant change was found Confirmed by Johnny Brasher ([id number]), copy editor MARIA LUZ DESAI ([id number]) on 03/03/2025 10:02:30 AM Referred By: AASHISH/SRIKANTH Confirmed By: Johnny Brasher
--- NOTE | 2025-02-28 16:36 | RAD_ITS ---
PROCEDURE: CHEST 1 VIEW (PORTABLE) 02/28/2025 REASON FOR EXAM: 79-year-old female, sudden onset chest pain radiating into the neck proximally 30 minutes ago. Patient reports this has subsided but still experiencing pressure. TECHNIQUE: Frontal view of the chest. COMPARISON: CTA chest 08/27/2024. FINDINGS: Hardware: None. Heart: Cardiac and mediastinal contours are stable. Lungs: No focal consolidation, pleural effusion or pneumothorax. Bones: Degenerative changes are identified within the thoracic spine. Arthrosis of the bilateral shoulders. RAD/Chest 1 View (Portable) IMPRESSION: Negative Chest. Reading Location: [id number]
[2025-02-28] MEDS: Nitroglycerin SL (ED/IMG/CATH) 0.4 MG TABLET SL (16:37)
[2025-02-28] MEDS: Aspirin 81 MG TAB.CHEW 324 MG PO (16:37)
[2025-02-28 16:45] LABS: Absolute Lymphocyte Count 2.41 X10^3/uL (0.83-4.51); Absolute Neutrophil Count 4.3 X10^3/uL (2.0-7.7); Basophil# 0.04 X10^3/uL; Basophil% 0.5 % (0-1); Eosinophil# 0.17 X10^3/uL; Eosinophils% 2.3 % (0-5); Hematocrit 44.9 % (37-47); Lymphocyte # 2.41 X10^3/ul (0.83-4.51); Lymphocyte % 32.4 % (19-41); Mean Corp Hgb Conc 33.4 g/dL (32-36); Mean Corpuscular Hgb 31.1 pg (27.0-32.0); Mean Corpuscular Volume 93.2 fL (81-99); Mean Platelet Vol. 10.3 fl (6.2-12.0); Monocyte# 0.55 X10^3/uL; Monocyte% 7.4 % (0-10); NRBC Flagged by Analyzer 0 % (0-5); Neutrophil # 4.25 X10^3/uL (2.7-7.7); Neutrophil % 57.1 % (47-70); Platelet Count 204 K/mm3 (150-450); RBC Distribution Width SD 44.5 fl (35.1-43.9); Red Blood Count 4.82 M/mm3 (4.2-5.4); White Blood Count 7.4 K/mm3 (4.4-11.0)
[2025-02-28 16:57] LABS: Anion Gap 14 (5-15); BUN 26 mg/dL (4-19); BUN/Creat Ratio 22.6 RATIO (10-20); Calcium,Total 10.3 mg/dL (7.6-11.0); Carbon Dioxide 21.4 mmol/L (21.0-32.0); Chloride 103 mmol/L (98-108); Creatinine, Serum 1.16 mg/dL (0.70-1.20); EST Glomerular Filtration Rate 49 (>60); Estimated Creatinine Clearance 50.43 ml/min (50-250); Glucose 108 mg/dL (70-99); Potassium 4.3 mmol/L (3.3-5.1); Sodium Level 139 mmol/L (133-145); Troponin T High Sensitivity 12 ng/L (<=14)
--- NOTE | 2025-02-28 16:58 | ED.RN ---
d-dimer 0.82. dr redding
[2025-02-28 16:59] LABS: D-Dimer Quantitative (DVT/PE) 0.82 FEU/ug/m (0.27-0.49)
--- NOTE | 2025-02-28 17:46 | CT_ITS ---
PROCEDURE: CTA CHEST W/WO CONTRAST 02/28/2025 REASON FOR EXAM: 79-year-old female, ELEVATED D-DIMER, crushing chest pain. TECHNIQUE: CTA axial imaging of the chest with intravenous contrast. Coronal and Sagittal reconstruction series were provided. 3D, 3D post processing, 3D reconstructions, Maximum intensity projection (MIPs) Volume rendering and Shaded surface rendering was provided. PATIENT PREPARATION: Per protocol CONTRAST: Isovue 370 VOLUME: 100mL One or more dose reduction techniques were used (e.g., Automated exposure control, adjustment of the mA and/or kV according to patient size, use of iterative reconstruction technique). RADIATION DOSE SUMMARY: CTDlvol: 28 mGy DLP: 500 mGycm COMPARISON: CTA chest 08/27/2024. FINDINGS: Hardware: None. Lymph nodes: No axillary, mediastinal or hilar lymphadenopathy. Heart: The heart is normal in size without pericardial effusion. Severe coronary artery and mild thoracic aortic calcifications. The great vessels are normal in caliber. Pulmonary Vessels: No filling defect within the segmental or subsegmental pulmonary arteries. Lungs and Airways: The central airways are patent. Simple bilateral pulmonary cysts. No suspicious pulmonary nodule. No pleural effusion or pneumothorax. Upper Abdomen: Thickening of the left adrenal gland without discrete nodule. Calcific plaque of the abdominal aorta. Bones: Degenerative changes of the thoracic spine. Chronic bilateral rib fracture deformities. CT/CTA Chest W/WO Contrast IMPRESSION: 1. No evidence of acute pulmonary embolism. 2. Severe coronary artery calcifications. Reading Location: [facility]
[2025-02-28] MEDS: 0.9% Normal Saline (1000mL) 1,000 ML 1000 ML IV (18:03)
[2025-02-28 18:56] LABS: Troponin T High Sens 2 HR 14 ng/L (<=14)
== END 2025-02-28 20:21 | disposition home or self-care (01) ==
PROVIDERS: Emergency Provider Emergency Medicine; PCP Nurse Practitioner Family; Visit Provider Emergency Medicine
DX: R07.89 Other chest pain (principal); I48.91 Unspecified atrial fibrillation; M32.9 Systemic lupus erythematosus, unspecified; R03.0 Elevated blood-pressure reading, without diagnosis of hypertension; R11.0 Nausea; I44.4 Left anterior fascicular block; I71.40 Abdominal aortic aneurysm, without rupture, unspecified; Z88.2 Allergy status to sulfonamides; Z88.0 Allergy status to penicillin; Z86.718 Personal history of other venous thrombosis and embolism; Z79.899 Other long term (current) drug therapy
CPT/HCPCS: 71045; 71275; 80048; 84484; 85025; 85379; 93005; 96360; 99285; Q9967; A4216

== ENCOUNTER 2025-04-16 21:03 | Emergency (ER) | payer MEDICARE, OTHER, SELFPAY ==
[2025-04-16 21:05] VITALS: BP 153/98; PULSE 89; RESP 18; TEMP 36.4; O2SAT 97; BMI 41.1
--- NOTE | 2025-04-16 21:21 | EDS_ITS ---
HPI <Dr. Vj Downs DO - Last Filed: 04/16/25 22:04> History of Present Illness Chief Complaint: Laceration Informant: patient Onset/Context/Timing Onset: Today Mechanism/Context: Fall Quality of Pain: Dull Location: Right gluteal area Worsened by: Nothing Relieved by: Nothing Associated Symptoms Associated Symptoms: Negative for Parasthesias, Weakness, Loss of function, Inability to ambulate, Loss of consciousness or Amnesia Narrative Narrative: Patient presents with laceration to her right buttock that occurred today. Patient states she slipped while getting out of the tub and fell. Patient states she landed on a metal grate. Patient states the bleeding has been persistent. Patient denies any head injury or loss of consciousness. Patient denies any paresthesias or weakness. Patient is unsure of her last tetanus. Patient describes her pain as dull. Patient states it is over the right gluteal area. Tetanus Immunization: Unknown [facility] <Dr. Vj Downs DO - Last Filed: 04/16/25 22:04> [facility] Medical History Kidney disease AAA (abdominal aortic aneurysm) DVT (deep venous thrombosis) Wears partial dentures Wears glasses Sleep apnea Osteopenia Vitamin D deficiency Hypercalcemia Hyperparathyroidism Lupus Breast lump Atrial fibrillation Arthritis Home Medications ?Medication ?Instructions ?Recorded ?Last Taken ?Type hydroxychloroquine 200 mg tablet 200 mg PO BID 0 09/25/22 History mirabegron 25 mg tablet,extended 25 mg PO QHS OVERACTI VE BLADDER 07/10/21 09/24/22 History release 24 hr acetaminophen 500 mg tablet 1,000 mg (2 x 500 mg) PO Q 8 #1 TAB 08/28/24 Unknown Rx Allergy/AdvReac Type Severity Reaction Status Date / Time Penicillins Allergy Intermediate rash Verified 04/16/25 21:04 Sulfa (Sulfonamide AdvReac Other Verified 04/16/25 21:04 Antibiotics) Family History Other Arthritis Cancer Myocardial infarction Surgical History History of AAA (abdominal aortic aneurysm) repair S/P parathyroidectomy Hx of colonoscopy Hx of bilateral hip replacements Hx of total knee replacement Social History Smoking Status: Never smoker alcohol intake: never substance use type: does not use ROS <Dr. Vj Downs DO - Last Filed: 04/16/25 22:04> ROS ED Constitutional Constitutional ED: Denies chills or fever(s) Eyes Eyes: Denies blurry vision or change in vision ENT ENT ED: Denies rhinorrhea or sore throat Cardiovascular Cardiovascular: Denies chest pain or palpitations Respiratory/Chest Respiratory/Chest: Denies cough or dyspnea Gastrointestinal Gastrointestinal: Denies nausea or vomiting Genitourinary Genitourinary ED: Denies dysuria or hematuria Musculoskeletal Musculoskeletal: Denies back pain or neck pain Integumentary Denies abscess or rash Neurologic Neurologic: Denies headache(s) or weakness Allergic/Immunologic Allergic/Immunologic ED: Denies mouth swelling or urticaria EXAM <Dr. Vj Downs DO - Last Filed: 04/16/25 22:04> Physical Exam Const Vital Signs: 04/16/25 21:05 Temperature 97.5 F L Temperature Source Temporal Pulse Rate 89 Respiratory Rate 18 Blood Pressure 153/98 H Blood Pressure Mean 116 Pulse Ox 97 Oxygen Delivery Method Room Air Positive well nourished and well developed General Appearance ED: well developed and NAD HEENT atraumatic Neck full ROM Neuro oriented x3, CN's II-XII intact bilaterally, moves all extremities, no focal motor deficits and no sensory deficits noted [facility] Coma Scale: document GCS findings Spontaneous Obeys Commands Oriented 15 Sensorium / Orientation: alert Motor Exam: strength 5/5 throughout Psych mental status grossly normal and thought process normal Skin Skin Narrative: There is a 3 cm full-thickness linear laceration over the right gluteal area near the midline. There is moderate gapping of the wound margins. There is no active bleeding noted. There are no foreign bodies noted. <SONDRA Bradshaw - Last Filed: 04/16/25 21:57> Physical Exam Const Vital Signs: 04/16/25 21:05 Temperature 97.5 F L Temperature Source Temporal Pulse Rate 89 Respiratory Rate 18 Blood Pressure 153/98 H Blood Pressure Mean 116 Pulse Ox 97 Oxygen Delivery Method Room Air Neuro [facility] Coma Scale: document GCS findings 15 PROC <SONDRA Bradshaw - Last Filed: 04/16/25 21:57> Procedures Lacerations laceration: Length: 3 cm Depth: Sub Q Shape: Linear Prep: Chlorhexadine Laceration repair: Irrigated, Lidocaine, Lidocaine with epi and Wound explored Number of Sutures/Manjeet: 7 Suture Information: Ethilon, Simple and 4-0 MDM <Dr. Vj Downs, DO - Last Filed: 04/16/25 22:04> [facility] MDM Narrative Medical decision making narrative: Patient was given a tetanus booster. The wound was cleaned irrigated with copious muscle normal saline. The wound was anesthetized with 1% plain lidocaine locally. The wound was closed with 7 simple interrupted 4-0 Ethilon sutures by the CLIFFORD under my supervision. Tolerated the procedure well. Bacitracin dressing was applied. Patient was instructed to keep the wound clean and dry. Patient was instructed to follow-up with her primary care physician in 7 days for suture removal. Patient understood and was agreeable with the plan. All questions were answered. Discharge Plan Triage Chief Complaint: Laceration ED Provider: Vj Downs Dx/Rx/DC Orders Clinical Impression: Laceration of right buttock, Fall Instructions: ED Laceration, All Closures Prescriptions: No Action hydroxychloroquine 200 mg tablet 200 mg PO BID mirabegron 25 mg tablet extended release 24 hr 25 mg PO QHS acetaminophen 500 mg Tablet 1,000 mg PO Q8 Qty: 1 0RF Rx Instructions: Take this for 2 weeks then go back to your as needed Tylenol Primary Care Provider: Jean Pierre Randolph [facility] Referrals: Jean Pierre Randolph [facility], [facility] [Primary Care Provider] - 7 Days for suture removal Print Language: Nigerian Disposition Disposition: Home, Self Care
[2025-04-16] MEDS: Lidocaine 1% /Epi 1:100 (20ml) 20 ML Vial 10 ML INFILT (21:32)
[2025-04-16] MEDS: Diphth,Pertuss(Acell),Tet Vac 0.5 ML Vial IM (21:33)
[2025-04-16 22:04] VITALS: BP 158/85; PULSE 82; RESP 18; TEMP 36.7; O2SAT 98
== END 2025-04-16 22:06 | disposition home or self-care (01) ==
PROVIDERS: Emergency Provider Emergency Medicine; PCP Nurse Practitioner Family; Visit Provider Emergency Medicine
DX: S31.811A Laceration without foreign body of right buttock, initial encounter (principal); M32.9 Systemic lupus erythematosus, unspecified; W01.0XXA Fall on same level from slipping, tripping and stumbling without subsequent striking against object, initial encounter; Y93.E1 Activity, personal bathing and showering; Y92.002 Bathroom of unspecified non-institutional (private) residence as the place of occurrence of the external cause; Z79.899 Other long term (current) drug therapy; Z23 Encounter for immunization
CPT/HCPCS: 12002; 90471; 90715; 99283

== ENCOUNTER → 2025-06-20 | Outpatient (CLI) | payer MEDICARE, OTHER, SELFPAY ==
[2025-06-20 15:36] LABS: Hematocrit 45.8 % (37-47); Hemoglobin 14.5 g/dL (12.0-15.0); Immature Granulocytes Count 0.010 X10^3/uL (0.0-0.0); Mean Corp Hgb Conc 31.7 g/dL (32-36); Mean Corpuscular Volume 97.4 fL (81-99); Mean Platelet Vol. 10.9 fl (6.2-12.0); NRBC Flagged by Analyzer 0 % (0-5); Platelet Count 171 K/mm3 (150-450); RBC Distribution Width CV 12.8 % (11.6-14.6); RBC Distribution Width SD 45.8 fl (35.1-43.9); Red Blood Count 4.70 M/mm3 (4.2-5.4); White Blood Count 6.5 K/mm3 (4.4-11.0)
[2025-06-20 16:13] LABS: AST(SGOT) 29 U/L (<=31); Alanine Aminotransfer ALT/SGPT 18 U/L (<=34); Albumin, Serum 4.2 g/dL (3.4-4.8); Alkaline Phosphatase 102 U/L (35-104); Anion Gap 14 (5-15); BUN 32 mg/dL (4-19); BUN/Creat Ratio 24.8 RATIO (10-20); Calcium,Total 9.7 mg/dL (7.6-11.0); Carbon Dioxide 19.0 mmol/L (21.0-32.0); Chloride 106 mmol/L (98-108); Globulin 3.1 g/dL (2.2-4.2); Glucose 75 mg/dL (70-99); Potassium 4.6 mmol/L (3.3-5.1)
== END | disposition home or self-care (01) ==
LOC: MTLAB 12:56
PROVIDERS: PCP Nurse Practitioner Family; Referring Provider Internal Medicine Rheumatology; Visit Provider Internal Medicine Rheumatology
DX: M32.9 Systemic lupus erythematosus, unspecified (principal)
CPT/HCPCS: 36415; 80053; 85025